=== PATIENT | female | born 1950 | race Caucasian/White ===

== ENCOUNTER 2018-08-07 03:06 | Emergency (ER) | payer BC, SELFPAY ==
[2018-08-07 03:07] VITALS: BP 196/67; PULSE 82; RESP 16; TEMP 36.8; O2SAT 98
[2018-08-07 03:13] VITALS: RESP 16
--- NOTE | 2018-08-07 03:31 | ED.GENADUL_ITS ---
Discharge Plan Disposition Patient Disposition: HOME Condition: Stable Discharge Details Chief Complaint: Dizzy/Sync Clinical Impression: Peripheral vertigo ED Provider: Chan Raman Home Meds and New Rx's Prescriptions: New meclizine 25 mg tablet 25 mg PO TID PRN (Reason: dizziness) Qty: 14 RF: 0 meclizine 25 mg tablet 25 mg PO BID-TID PRN (Reason: dizziness) Qty: 14 RF: 0 Continued phenytoin sodium extended [Dilantin Extended] 100 mg Capsule 400 mg PO DAILY RF: 0 phenobarbital 64.8 mg Tablet 64.8 mg PO BID RF: 0 Discharge Instructions Instructions: Vertigo (ED) Additional Instructions: Home to rest today. Please sleep with head of the bed elevated 2-3 pillows. I have referred you to physical therapy as they can help with treatment of your vertigo. May use the prescribed meclizine, as needed for persistent vertigo Stand Alone Forms: Physical Therapy Referral Medical Decision Making 68-year-old female with a history of previous episodes of vertigo. She presents with vertiginous symptoms that began when rolling and turning her head in bed tonight. She did not fall. She has not had any other recent illness. She arrives with mild hypertension but otherwise normal vital signs. She has an intact neurologic exam. She does not appear clinically to have Dilantin toxicity. Patient given meclizine and referred for screening CT scan of the head. There are no acute findings. Patient has left frontotemporal encephalomalacia. Improving with meclizine. Will offer her prescription of same to be used as needed at home. HPI General Mode of arrival: EMS . Date/Time Provider Initiated Documentation: 08/07/18 03:08 . Limitations to Documentation: no limitations . Information obtained by: patient and EMS . History of Present Illness 68 year old F presents to the emergency department with the chief complaint of Vertigo. Once 3 days ago and recurrent again tonight., described as moderate and similar to prior episodes, and is localized to the head. Patient reports no radiation. Patient started experiencing this hour(s) and it has been constant. Rest improves symptom(s), Movement worsens symptoms . Patient notes no other symptoms.. Patient did receive the following treatments prior to arrival, none Related Data Home Medications Medication Instructions Recorded Confirmed meclizine 25 mg PO BID-TID PRN #14 tab 08/07/18 meclizine 25 mg PO TID PRN #14 tab 08/07/18 phenobarbital 64.8 mg PO BID 08/07/18 08/07/18 phenytoin sodium extended 400 mg PO DAILY 08/07/18 08/07/18 [Dilantin Extended] Previous Rx's Medication Instructions Recorded meclizine 25 mg PO BID-TID PRN #14 tab 08/07/18 meclizine 25 mg PO TID PRN #14 tab 08/07/18 Allergies Allergy/AdvReac Type Severity Reaction Status Date / Time triamcinolone AdvReac Mild Other (See Unverified 08/07/18 03:18 Comment) General Stated Complaint: Dizzy/Sync SAKINA: 3 Review of Systems Review of Systems No fall or injury. No recent illness. She is had mild right ear discomfort. Similar episodes of vertigo in the past. 8 systems reviewed and otherwise negative [facility] Social History Smoking/Tobacco Use Status: Current every day Tobacco Type: cigarettes Alcohol Intake: never Drug use: Never Do you feel safe at home: Yes Exam Narrative Exam Narrative: GEN: awake, alert, oriented 3. Pleasant, well groomed, interactive. HEAD: Normocephalic, atraumatic ENT: Mucous membranes moist, oropharynx unremarkable, tympanic membranes [place] and pearlescent bilaterally, external ear exam unremarkable EYES: PERRL, EOMI NECK: Full ROM, no DONG, no menigismus CHEST/RESP: Nontender, clear to auscultation bilateral, no wheeze/rhonchi/rales CARDIOVASCULAR: RRR, no murmur, rub love. 2+ Rad pulse bilateral ABDOMEN: Soft, nontender, no mass. +Bowel sounds EXT: Full ROM, no edema, no rash Neuro: Grossly normal neurologic exam, conversant, interactive. Psych: Speech fluent, thoughts congruent, affect normal Course Vital Signs Temperature 36.8 C 08/07/18 03:07 Pulse 82 08/07/18 03:07 Respiratory Rate 16 08/07/18 03:07 Blood Pressure 196/67 H 08/07/18 03:07 Pulse Oximetry 98 08/07/18 03:07 Temperature 36.8 C 08/07/18 03:07 Temperature Source Temporal Artery Scan 08/07/18 03:07 Pulse 82 08/07/18 03:07 Respiratory Rate 16 08/07/18 03:13 Respiratory Effort 08/07/18 03:13 Respiratory Depth Normal 08/07/18 03:13 Respiratory Pattern Normal 08/07/18 03:13 Blood Pressure 196/67 H 08/07/18 03:07 Pulse Oximetry 98 08/07/18 03:07 Oxygen Delivery Method Room Air 08/07/18 03:07 Oxygen Flow Rate 0 08/07/18 03:07 Pain Level 0 08/07/18 03:07
[2018-08-07] MEDS: Meclizine 25 MG TAB PO ×2 (03:36→05:09)
--- NOTE | 2018-08-07 04:10 | DI.CT_ITS ---
SYMPTOMS/DIAGNOSIS: VERTIGO, RIGHT EAR PAIN NONCONTRAST HEAD CT: There is a large old area of encephalomalacia seen in the left temporal and frontoparietal regions. No acute hemorrhage, mass or acute infarct is seen. The orbits, sinuses and mastoid air cells are unremarkable. IMPRESSION: Old left frontotemporal encephalomalacia. No acute abnormality.
--- NOTE | 2018-08-07 04:14 | DI.VRAD_ITS ---
EXAM: CT Head Without Contrast EXAM DATE/TIME: 08/07/2018 3:29 AM CLINICAL HISTORY: 68 years old, female; Signs and symptoms; Dizziness; Patient HX: HX of a skull FX at age 13 R frontal, HX of seizures; Additional info: Dizziness, vertigo, R ear pain TECHNIQUE: Imaging protocol: Axial computed tomography images of the head without contrast. Coronal and sagittal reformatted images were created and reviewed. Radiation optimization: All CT scans at this facility use at least one of these dose optimization techniques: automated exposure control; mA and/or kV adjustment per patient size (includes targeted exams where dose is matched to clinical indication); or iterative reconstruction. COMPARISON: No relevant prior studies available. FINDINGS: Brain: Left frontotemporal encephalomalacia noted No hemorrhage. Unremarkable white matter. No mass effect. Question mildly low-lying cerebellar tonsils Ventricles: Normal. No ventriculomegaly. Bones/joints: Unremarkable. No acute fracture. Sinuses: Visualized sinuses are unremarkable. No fluid levels. Mastoid air cells: Minimal fluid bilaterally Soft tissues: Unremarkable. IMPRESSION: No acute intracranial abnormality. Findings in keeping with remote left-sided frontotemporal trauma/hemorrhage. Question mildly low-lying cerebellar tonsils which may be positional. Correlate for occipital headaches Minimal mastoid fluid Dictated and Authenticated by: Gino Treviño MD. Ordering:RAYMUNDO Giles MD
[2018-08-07 04:58] VITALS: BP 165/84; PULSE 70; RESP 18; O2SAT 98
== END 2018-08-07 05:12 | disposition home or self-care (01) ==
LOC: ER 05:16
PROVIDERS: Emergency Provider Emergency Medicine; PCP Family Medicine
DX: H81.393 Other peripheral vertigo, bilateral (principal); G93.89 Other specified disorders of brain; I10 Essential (primary) hypertension
CPT/HCPCS: 99284; 70450

== ENCOUNTER 2018-08-23 11:38 | Outpatient (REF) | payer BC, SELFPAY ==
[2018-08-23 22:39] LABS: Anion Gap 9.5 mmol/L (3-11); BUN 17 mg/dL (7-18); CO2 27.5 mmol/L (21.0-32.0); CREATININE 0.84 mg/dL (0.55-1.02); Calcium 8.6 mg/dL (8.5-10.1); Chloride 101 mmol/L (98-107); Glucose 90 mg/dL (70-100); PHENOBARBITAL 16.2 ug/mL (15.0-40.0); Potassium 4.4 mmol/L (3.5-5.1); Sodium 138 mmol/L (136-145)
[2018-08-24 17:42] LABS: Phenytoin (UVM) 9.8 ug/ml (10.0-20.0)
== END 2018-08-23 11:58 ==
LOC: NCHCN 11:38
PROVIDERS: PCP Family Medicine; Visit Provider Specialist/Technologist Athletic Trainer
DX: R56.9 Unspecified convulsions (principal); Z51.81 Encounter for therapeutic drug level monitoring; Z79.899 Other long term (current) drug therapy
CPT/HCPCS: 80048; 80185; 80184

== ENCOUNTER 2019-09-03 12:37 | Emergency (ER) | payer BC, SELFPAY ==
[2019-09-03] VITALS (13 sets, daily range): BP systolic 129–159; BP diastolic 73–87; PULSE 89–99; RESP 15–32; TEMP 37; O2SAT 94–97
--- NOTE | 2019-09-03 12:30 | DI.RAD_ITS ---
EXAM: XR PORTABLE CHEST AP CLINICAL HISTORY: chest pain, SOB TECHNIQUE: 2D digital imaging was performed. COMPARISON: No exams were available for comparison FINDINGS: LUNGS: Clear. No pleural abnormality seen. HEART: Normal. MEDIASTINUM: Normal. Multiple leads overlie the chest. The right upper lobe is partially obscured. IMPRESSION: No acute pulmonary findings. DATA REPOSITORY: RADIATION DOSE DELIVERED:
--- NOTE | 2019-09-03 12:30 | DI.CT_ITS ---
EXAM: CT THORAX AND ABD/PEL CTA INDICATION: BACK PAIN, ? AORTIC DISSECTION COMPARISON: There are no prior comparison exams. TECHNIQUE: CT angiography of the chest, abdomen and pelvis was performed. FINDINGS: Chest: There is no evidence of aortic dissection. There are atherosclerotic changes of the thoracic and abd ominal aorta with some mural irregularity and calcification. There is a focal aneurysm of the descend ing thoracic aorta at the T8-9 level. It measures roughly 1.3 x 1 cm. There is no evidence of dissect ion or extravasation of contrast. The branch vessels in the chest and abdomen appear patent. There is no pleural or pericardial effusion. The left atrium and left ventricle are mildly dilated. There are mild coronary artery calcifications. The pulmonary arteries are well opacified with IV contrast and no emboli are seen. There is an aneurysm seen in the distal abdominal aorta, which has a fusiform marck earance. There is mural thrombus eccentric toward the left. There is no evidence of rupture. It measu res 6.2 cm in length x 3.7 cm transverse x 3.5 cm AP. There is a nodule at the lower pole of the right lobe of the thyroid measuring 3.8 cm. Lungs: There are underlying emphysematous changes as well as fibrotic changes. There is a spiculated- appearing mass directly adjacent to the right hilum at the major fissure measuring 1 cm in diameter. An additional mass is seen posteriorly in the right lower lobe measuring 4 millimeters. A tiny nodule is seen at the left upper lobe. There is a 1.2 centimeter area of atelectasis versus scarring or ma ss measuring 1.6 cm anteriorly in the left upper lobe. There are additional smaller masses seen anter iorly in the left upper lobe. There is an 8 millimeter nodule seen more superiorly along the left sony or fissure. Breasts: There is roughly a 4.5 centimeter invasive-appearing mass seen at the right inframammary fol d, which appears to invade the inferior portion of the pectoralis major muscle. There is also invasio n into the skin. There is asymmetry in breast size and the right nipple is not seen, which could be s econdary to previous surgery. Lymph nodes: There are small bilateral axillary lymph nodes, not definitely pathologically enlarged. There is a right paratracheal node measuring 1.5 cm and a superior right hilar lymph node measuring 1 .8 cm. Bones: There are bony lesions in the T5 and T7 vertebral bodies having the appearance of hemangiomas. No definite suspicious bony abnormalities are seen. Abdomen and pelvis: The exam is somewhat limited by patient motion. Patient is status post cholecystectomy. No liver le sions are visible. The surgical clips create artifact through the liver. There are multiple bilateral renal cysts. There is enlargement of the left adrenal gland without definite focal mass. The right a drenal gland appears normal. There is a small diverticulum of the descending duodenum. The pancreas i s mildly atrophic. The spleen is normal in size. The bladder is unremarkable. The uterus and ovaries are unremarkable. The bowel is not well evaluated due to motion. There is no evidence of obstruction. There are no signs of wall thickening. There is a moderate quantity of stool. There is a 2.6 centimeter spiculated lesion in the subcutaneous fat beneath the level of the lower le ft ribs, in the left flank region. IMPRESSION: 1. Focal 1.3 centimeter aneurysm of the posterior descending thoracic aorta. 3.7 centimeter aneury sm of the distal abdominal aorta. No evidence of dissection or rupture. 2. A 4.5 centimeter invasive-appearing mass involving the lateral inferior right breast with inva samantha into the skin and pectoral muscle. Additional 2.6 centimeter spiculated lesion in the subcutane ous fat of the left flank region. 3. Multiple pulmonary nodules with a spiculated appearance, suspicious for metastatic lesions. RADIATION DOSE DELIVERED: 1,126.53mGy.cm Total DLP
[2019-09-03 13:01] LABS: Abs Immature Grans 0.01 k/cumm (0.0-0.09); Absolute Basophil Count 0.02 k/cumm (0.0-0.2); Absolute Eosinophil Count 0.07 k/cumm (0.0-0.7); Absolute Lymphocyte Count 2.11 k/cumm (1.2-3.4); Absolute Monocyte Count 0.52 k/cumm (0.11-0.7); Absolute Neutrophil Count 5.21 k/cumm (1.2-6.7); Basophils % 0.3; Eosinophils % 0.9; HCT 40.1 % (36.0-46.0); HGB 13.9 g/dL (12.0-15.5); Immature Grans % 0.1 %; Lymphocytes % 26.6; Mean Corp. HGB Concentration 34.7 g/dL (32.0-36.0); Mean Corpuscular Volume 92.4 fL (80-95); Mean Platelet Volume 10.9 fL (8.0-11.0); Monocytes % 6.5; Neutrophils % 65.6; Platelet Count 232 x1000/uL (130-400); RBC 4.34 m/cumm (4.00-5.20); RBC Distribution Width 15.2 % (11.7-14.6); White Blood Cell Count 7.94 k/cumm (4.4-10.8)
[2019-09-03] MEDS: Omnipaque 350 MG/ML 100 ML BTL IJ (13:09)
--- NOTE | 2019-09-03 13:12 | ED.GENADUL_ITS ---
Discharge Plan Discharge Details Chief Complaint: Chest Pain Primary Care Provider: Niurka Hood ED Provider: Anel Martinez Home Meds and New Rx's Prescriptions: No Action phenytoin sodium extended [Dilantin Extended] 100 mg Capsule 400 mg PO DAILY RF: 0 phenobarbital 64.8 mg Tablet 64.8 mg PO BID RF: 0 meclizine 25 mg tablet 25 mg PO BID-TID PRN (Reason: dizziness) Qty: 14 RF: 0 Discharge Data Discharge Date/Time-TO BE ENTERED AT DEPARTURE: 09/03/19 13:58 Medical Decision Making Lucero Caldera is a 69 y/o woman with a h/o seizures who presented to the emergency department with one week of b/l shoulder pain, now with chest pain and back pain today. On exam neurologically non-focal, benign cardiopulmonary exam, Pt appears intermittently uncomfortable. EKG in the field showed STEMI. Pt received full dose ASA and NGx1 in the field. Concern for STEMI vs aortic dissection vs other. Exam/hx not c/w AAA rupture, CVA, sepsis. Plan for EKG, CXR, CTA, NG. EKG shows STEMI. Discussed case with cardiology at [facility] directly after EKG resulted. Dr. Silverman of cardiology requested 300mg plavix and 50 mg TNK after aortic dissection ruled out. Accepting physician is Dr. Spence. ESTHER en route. Pt with pain improved with SLNG. Plan for gtt. Pt to CTA emergently. CTA read by me in diagnostic imaging dept, shows abnormality of descending aorta below arch, holding lytics for now, attempting to contact radiology for read. 13:22 discussed CTA with radiology over the phone: Small focal aneurysm noted at T9-10 level, also chronic AAA. 1324: Contacted [facility] re: CT results, images pushed, awaiting recommendations re: lytics. 1338 Dr. Silverman called, reported that he spoke with Dr. Hoover of radiology and reviewed the CT images and report to [facility], he requests full dose tenecteplase, plavix be given to the patient at this time. TNK and plavix given. Pt remains comfortable on NG gtt. [facility]ART arrived, Pt left ED with medics for transfer without further issue. Clinical Impression: STEMI Disposition: [facility] Medical Records Medical records reviewed: Yes I reviewed the patient's medical records. Imaging Data Radiologic Study: Attestation: I personally reviewed and interpreted this imaging study as follows: Radiologist's impression: EXAM: XR PORTABLE CHEST AP CLINICAL HISTORY: chest pain, SOB TECHNIQUE: 2D digital imaging was performed. COMPARISON: No exams were available for comparison FINDINGS: LUNGS: Clear. No pleural abnormality seen. HEART: Normal. MEDIASTINUM: Normal. Multiple leads overlie the chest. The right upper lobe is partially obscured. IMPRESSION: No acute pulmonary findings. Lab Data Lab results reviewed: Yes I reviewed the patient's lab results. Labs: Laboratory Tests Range/Units 09/03/19 09/03/19 09/03/19 12:50 12:50 12:50 WBC (4.4-10.8) k/cumm 7.94 RBC (4.00-5.20) m/cumm 4.34 Hgb (12.0-15.5) g/dL 13.9 Hct (36.0-46.0) % 40.1 MCV (80-95) fL 92.4 MCH (27.0-33.0) pg 32.0 MCHC (32.0-36.0) g/dL 34.7 RDW (11.7-14.6) % 15.2 H Plt Count (130-400) x1000/uL 232 MPV (8.0-11.0) fL 10.9 Immature Gran % % 0.1 Neutrophils % 65.6 Lymphocytes % 26.6 Monocytes % 6.5 Eosinophils % 0.9 Basophils % 0.3 Absolute Neutrophils (1.2-6.7) k/cumm 5.21 Absolute Lymphocytes (1.2-3.4) k/cumm 2.11 Absolute Monocytes (0.11-0.7) k/cumm 0.52 Absolute Eosinophils (0.0-0.7) k/cumm 0.07 Absolute Basophils (0.0-0.2) k/cumm 0.02 PT (9.3-11.0) sec 9.7 INR (0.9-1.1) 1.0 Sodium Cancelled Potassium Cancelled Chloride Cancelled Carbon Dioxide Cancelled Anion Gap Cancelled BUN Cancelled Creatinine Cancelled Estimated GFR/1.73 m2 Cancelled Glucose Cancelled Calcium Cancelled Total Bilirubin Cancelled AST Cancelled ALT Cancelled Alkaline Phosphatase Cancelled Troponin I Cancelled Total Protein Cancelled Albumin Cancelled Range/Units 09/03/19 09/03/19 13:22 15:32 WBC (4.4-10.8) k/cumm RBC (4.00-5.20) m/cumm Hgb (12.0-15.5) g/dL Hct (36.0-46.0) % MCV (80-95) fL MCH (27.0-33.0) pg MCHC (32.0-36.0) g/dL RDW (11.7-14.6) % Plt Count (130-400) x1000/uL MPV (8.0-11.0) fL Immature Gran % % Neutrophils % Lymphocytes % Monocytes % Eosinophils % Basophils % Absolute Neutrophils (1.2-6.7) k/cumm Absolute Lymphocytes (1.2-3.4) k/cumm Absolute Monocytes (0.11-0.7) k/cumm Absolute Eosinophils (0.0-0.7) k/cumm Absolute Basophils (0.0-0.2) k/cumm PT (9.3-11.0) sec INR (0.9-1.1) Sodium 136 Potassium 4.0 Chloride 103 Carbon Dioxide 21.1 Anion Gap 11.9 H BUN 23 H Creatinine 1.03 H Estimated GFR/1.73 m2 52.98 Glucose 109 H Calcium 8.5 Total Bilirubin 0.3 AST 39 H ALT 35 Alkaline Phosphatase 207 H Troponin I 2.89 H* Cancelled Total Protein 6.9 Albumin 3.1 L ECG Data Attestation: I personally reviewed and interpreted this ECG (s) as follows: Interpretation: EKG shows sinus rhythm at 91, normal axis, ST elevation in lead I lead aVL lead V1 lead V2, ST depression inferiorly, STEMI HPI General Mode of arrival: EMS . Date/Time Provider Initiated Documentation: 09/03/19 12:38 . Limitations to Documentation: no limitations . Information obtained by: patient, RN notes reviewed and old records reviewed . HPI Narrative: Lucero Caldera is a 69 y/o woman with h/o seizures presenting to the emergency department presenting to the emergency department with b/l shoulder, back, and chest pain. Pt reports that for the past week she has been having pain in her bilateral posterior shoulders, occurring with rest but also somewhat worse with exertion. Pt states that today pain became much more severein both shouders, and she also developed pain in her central upper back and central chest. Pt reports that shoulder pain is aching, back and chest pain is sharp. Pt reports that she has been burping more frequently over the last week as well. She reports that pain is waxing and waning, sometimes worse with exertion, not pleuritic. She denies other pain, SOB, cough, fever, vomiting, diarrhea, numbness, weakness. Has been eating and drinking as usual. Never with similar pain in the past. Related Data Home Medications Medication Instructions Recorded Confirmed meclizine 25 mg PO BID-TID PRN #14 tab 08/07/18 phenobarbital 64.8 mg PO BID 08/07/18 08/07/18 phenytoin sodium extended 400 mg PO DAILY 08/07/18 08/07/18 [Dilantin Extended] Previous Rx's Medication Instructions Recorded meclizine 25 mg PO BID-TID PRN #14 tab 08/07/18 Allergies Allergy/AdvReac Type Severity Reaction Status Date / Time triamcinolone AdvReac Mild Other (See Unverified 09/03/19 13:24 Comment) General Stated Complaint: Chest Pain SAKINA: 2 Review of Systems Narrative: Constitutional: denies fevers Eyes: denies eye pain ENT: denies ear pain, dental pain, sore throat Cardiovascular: denies edema, reports chest pain Respiratory: denies SOB, cough GI: denies abdominal pain, vomiting, diarrhea : denies flank pain MSK: denies neck pain, reports b/l shoulder pain, upper back pain Skin: denies rash Neuro: denies headaches, numbness, weakness [facility] Social History Smoking/Tobacco Use Status: Current every day Tobacco Type: cigarettes Alcohol Intake: never Drug use: Never Substance use type: does not use Do you feel safe at home: Yes Do you feel safe in your relationship?: Yes Exam Narrative Exam Narrative: Constitutional: well and [id number], pleasant but appears intermittently uncomfortable, otherwise conversing normally HENT: head atraumatic/normocephalic/normal inspection, mucous membranes moist Eyes: conjunctiva normal, sclera normal, pupils 3mm b/l Neck: no stridor, normal ROM, trachea midline Chest: normal inspection, no TTP Resp: normal work of breathing, LCTAB Cardio: normal rate, normal rhythm, no murmur appreciated GI: abdomen soft, non-tender, non-distended Back: normal inspection, no rash, no TTP Skin: warm, dry, normal color, no rash Neuro: alert, not altered, grossly non-focal, normal tone Ext: no edema, no TTP of the shoulders or upper back, FROM b/l shoulders without pain, radial pulses intact and symmetric Psych: normal mood, normal affect, normal behavior Course Vital Signs Vital signs: Vital Signs Respiratory Rate 32 H 09/03/19 12:46 Temperature 37.0 C 09/03/19 12:49 Temperature Source Temporal Artery Scan 09/03/19 12:49 Pulse 95 H 09/03/19 12:49 Pulse 94 H 09/03/19 12:50 Respiratory Rate 18 09/03/19 12:50 Blood Pressure 159/73 H 09/03/19 12:49 Blood Pressure Mean 93 09/03/19 12:47 Blood Pressure Position Sitting 09/03/19 12:49 Pulse Oximetry 95 09/03/19 12:50 Oxygen Delivery Method Room Air 09/03/19 12:49 Oxygen Flow Rate 0 09/03/19 12:49 Pain Level 3 09/03/19 12:49 Lab/Test Results Lab/Test Results: Laboratory Tests Range/Units 09/03/19 12:50 WBC (4.4-10.8) k/cumm 7.94 RBC (4.00-5.20) m/cumm 4.34 Hgb (12.0-15.5) g/dL 13.9 Hct (36.0-46.0) % 40.1 MCV (80-95) fL 92.4 MCH (27.0-33.0) pg 32.0 MCHC (32.0-36.0) g/dL 34.7 RDW (11.7-14.6) % 15.2 H Plt Count (130-400) x1000/uL 232 MPV (8.0-11.0) fL 10.9 Immature Gran % % 0.1 Neutrophils % 65.6 Lymphocytes % 26.6 Monocytes % 6.5 Eosinophils % 0.9 Basophils % 0.3 Absolute Neutrophils (1.2-6.7) k/cumm 5.21 Absolute Lymphocytes (1.2-3.4) k/cumm 2.11 Absolute Monocytes (0.11-0.7) k/cumm 0.52 Absolute Eosinophils (0.0-0.7) k/cumm 0.07 Absolute Basophils (0.0-0.2) k/cumm 0.02 Critical Care Time Critical Care Time Critical Care Time: Yes Total Critical Care Time: 45 Attestation: I have spent greater than 45 min of critical care time with this critically ill patient, including frequent bedside reassessments, discussions with consultants, and management of gtts.
[2019-09-03 13:27] LABS: Prothrombin Time 9.7 sec (9.3-11.0)
[2019-09-03] MEDS: Clopidogrel 300 MG TAB PO (13:33)
[2019-09-03] MEDS: Tenecteplase 50 MG KIT IVP (13:41)
[2019-09-03] MEDS: Normal Saline Flush 10 ML SYR IVP (13:47)
[2019-09-03 13:55] LABS: ALT 35 U/L (14-59); AST 39 U/L (15-37); Albumin 3.1 g/dL (3.4-5.0); Alkaline Phosphatase 207 U/L (46-116); Anion Gap 11.9 mmol/L (3-11); BUN 23 mg/dL (7-18); Bilirubin, Total 0.3 mg/dL (0.2-1.0); CO2 21.1 mmol/L (21.0-32.0); CREATININE 1.03 mg/dL (0.55-1.02); Calcium 8.5 mg/dL (8.5-10.1); Chloride 103 mmol/L (98-107); Estimated GFR 52.98 (mL/min/1.73m2); Glucose 109 mg/dL (74-106); Sodium 136 mmol/L (136-145); Total Protein 6.9 g/dL (6.4-8.2)
[2019-09-03 13:56] LABS: Troponin I 2.89 ng/mL (<0.06)
== END 2019-09-03 13:58 ==
PROVIDERS: Emergency Provider Student in an Organized Health Care Education/Training Program; PCP Family Medicine
DX: I21.3 ST elevation (STEMI) myocardial infarction of unspecified site (principal); M54.6 Pain in thoracic spine; R14.2 Eructation; F17.210 Nicotine dependence, cigarettes, uncomplicated
CPT/HCPCS: 36415; 74177; 80053; 93005; 96365; 96375; 99291; 71045; 84484; 85025; 85610; 93010; J3101; J3490

== ENCOUNTER 2019-09-20 16:26 | Outpatient (RCR) | payer BC, SELFPAY | END 2019-10-19 23:59 | disposition home or self-care (01) | LOC: CR 16:26 | PROVIDERS: PCP Family Medicine; Visit Provider Family Medicine | DX: R69 Illness, unspecified (principal) ==

== ENCOUNTER 2019-10-01 07:22 | Outpatient (CLI) | payer BC, SELFPAY ==
--- NOTE | 2019-10-01 15:14 | NS.NUTBLAN_ITS ---
Hilary is 69 years old and is referred to typewriter mechanic for Medical Nutrition Therapy for obesity and CAD, recently had stent put in at [facility]. BMI 39 indicates class 2 obesity, does not want to be weighed today. Here today with her of 50 years. Dx include CAD, single vessel, HTN, Seizure disorder, hyperlipidemia. She smokes 1 pack per day. Meds include dilantin, phenobarbital, lisinopril, atorvastatin, plavix. Her manages her medications and does the cooking. Diet recall indicates reliance on convenience foods, low in lean protein and low in non starch vegetables. She drinks >10 cups water daily and > 4 cups coffee. No formal exercise program. Intervention: Educated Hilary and her on how to follow a low salt, low fat diet with easy to prepare foods. We also discussed importance of stopping smoking and starting exercise program such as walking 10-20 min daily. They are agreeable to both and are willing to make positive changes for their overall health. We also discussed importance of limiting extra fluid intake to 64 oz daily. Plan: Hilary will reduce fluid intake to 64 oz daily, Pat will avoid foods with > 140 mg sodium/serving and foods > 5 g saturated fat per serving, will walk 10- 20 min daily and talk to her MD about smoking cessation. No follow up visit planned.
[2019-10-03 14:52] LABS: COVID-19 RT-PCR Result NEGATIVE (Negative)
== END 2019-10-01 07:42 ==
PROVIDERS: PCP Family Medicine; Visit Provider Family Medicine
DX: Z03.818 Encounter for observation for suspected exposure to other biological agents ruled out (principal); I25.10 Atherosclerotic heart disease of native coronary artery without angina pectoris; I10 Essential (primary) hypertension; E78.5 Hyperlipidemia, unspecified; E66.8 Other obesity; Z71.3 Dietary counseling and surveillance
CPT/HCPCS: 97802; U0003

== ENCOUNTER 2019-11-19 09:00 | Outpatient (RCR) | payer BC, SELFPAY | END 2019-11-19 23:59 | disposition home or self-care (01) | LOC: CR 09:00 | PROVIDERS: PCP Family Medicine; Visit Provider Family Medicine | DX: I25.2 Old myocardial infarction (principal); Z51.89 Encounter for other specified aftercare | CPT/HCPCS: S9472 ==

== ENCOUNTER 2019-12-19 13:15 | Outpatient (RCR) | payer BC, SELFPAY | END 2019-12-19 23:59 | disposition home or self-care (01) | LOC: CR 13:15 | PROVIDERS: PCP Family Medicine; Visit Provider Family Medicine | DX: I25.2 Old myocardial infarction (principal); Z51.89 Encounter for other specified aftercare | CPT/HCPCS: S9472 ==

== ENCOUNTER 2019-12-28 09:00 | Outpatient (RCR) | payer BC, SELFPAY | END 2020-01-19 23:59 | disposition home or self-care (01) | LOC: CR 09:00 | PROVIDERS: PCP Family Medicine; Visit Provider Family Medicine | DX: I25.2 Old myocardial infarction (principal); Z51.89 Encounter for other specified aftercare | CPT/HCPCS: S9472 ==

== ENCOUNTER 2020-06-08 19:28 | Observation (INO) | payer BC, SELFPAY ==
[2020-06-08 19:30] VITALS: BP 150/72; PULSE 99; RESP 20; TEMP 36.7; O2SAT 97
--- NOTE | 2020-06-08 19:45 | DI.CT_ITS ---
EXAM: CT CHEST W CLINICAL HISTORY: Bleeding right breast mass. TECHNIQUE: Multi planar reconstructions were performed. CONTRAST MATERIAL: Omnipaque 350; 70 cc COMPARISON: CT CT THORAX ABD/PEL CTA from 09/03/2019 FINDINGS: CHEST: SOFT TISSUES: The previously described right breast mass is again noted, suspicious for malignancy, a ppearing necrotic and with contiguous involvement of the subjacent chest wall now evident but without rib destruction. There is overlying skin thickening which may be related to interval radiation symone tment. Few slightly prominent lymph nodes in the right axilla are noted. In addition, there is a it is a nodular density measuring 9 x 7 millimeters in the medial aspect of the opposite-left breast as well as another noncalcified 8 millimeter nodule more centrally located in the left breast, these fi ndings not previously evident. LUNGS: There is now a moderate size right pleural effusion, not previously present. Also smaller lef t pleural effusion. There are multiple small metastatic appearing nodules in both lung naqvi now ev ident. Average size is 6 millimeters. No focal findings in the trachea and mainstem bronchi. MEDIASTINUM: No obvious hilar nor mediastinal adenopathy. Large nodule in the right thyroid lobe is again noted.. There is no supraclavicular adenopathy. Visualized thyroid unremarkable. CARDIAC: Mild cardiomegaly. No pericardial effusion.Caliber of the thoracic aorta is within normal l imits. VISUALIZED UPPER ABDOMEN:Right adrenal gland unremarkable. The previously described mass in the left adrenal gland is unchanged. Multiple cysts in the visualized kidneys are again noted. The gallblad joao is surgically absent. There is a fusiform infrarenal abdominal aortic aneurysm noted which is on ly partially included in the field of view but measures approximately 3.5 cm. In addition, there is a subcutaneous noncalcified nodule over the anterior Tricia right abdominal wall measuring 15 mm are 1. 5 x 1.1 cm. This appears unchanged from 09/03/2019 OSSEOUS: There is a cyst nonexpansile sclerotic bone lesion in the posterior left side of the T12 ligia tebral body, most probably metastatic. This was not evident on the prior study. Another sclerotic m etastatic lesion is evident on the right side of L2 vertebral body and also lesions in partially incl uded L3 vertebra. IMPRESSION: 1. Compared to the prior CT scan of August 2019 there has been significant deterioration. Previously d escribed large right breast mass appears presently necrotic and invading the underlying chest wall. Additional breast nodules as above. 2. There are multiple metastatic nodules now evident in both lung naqvi and there are bilateral pleu ral effusions, right larger than left. 3. Large nodule in the right thyroid lobe again noted. 4. Sclerotic metastatic disease now evident in vertebral bodies, not previously present. No obvious rib lesions. 5. Left adrenal mass again noted which appears unchanged in size. Cannot rule out a malignant metas tatic lesion. The opposite-right adrenal gland remains unremarkable. 6. Gallbladder surgically absent. Biliary tree is not dilated. There are bilateral benign kidney c ysts. RADIATION DOSE DELIVERED: 1,621.08mGy.cm Total DLP DATA REPOSITORY: All CT scans at this facility are submitted to the National Radiology Data Registry (NRDR) Dose Index Registry (DIR) with the [employer] ([employer]). RADIATION OPTIMIZATION: All CT scans at this facility use at least one of these dose optimization te chniques: automated exposure control; mA and/or kV adjustment per patient size (includes targeted exa ms where dose is matched to clinical indication); or iterative reconstruction.
--- NOTE | 2020-06-08 19:53 | ED.GENADUL_ITS ---
Discharge Plan Disposition Patient Disposition: [facility] INPATIENT Condition: Serious Discharge Details Chief Complaint: Cellulitis Clinical Impression: Breast lesion Primary Care Provider: Niurka Hood ED Provider: Kamar Mace Home Meds and New Rx's Prescriptions: No Action lisinopril 5 mg tablet 5 mg PO DAILY RF: 0 nitroglycerin 0.4 mg tablet, sublingual 0.4 mg SL Q5M PRNRF: 0 clopidogrel [Plavix] 75 mg tablet 75 mg PO DAILY RF: 0 atorvastatin 80 mg tablet 80 mg PO DAILY RF: 0 aspirin [Aspir-81] 81 mg tablet,delayed release (DR/EC) 81 mg PO DAILY RF: 0 metoprolol succinate 50 mg tablet extended release 24 hr 25 mg PO DAILY RF: 0 phenytoin sodium extended [Dilantin Extended] 100 mg Capsule 400 mg PO DAILY RF: 0 phenobarbital 64.8 mg Tablet 64.8 mg PO BID RF: 0 Medical Decision Making This is a 70-year-old female who presents from home via EMS for evaluation of a bleeding wound. She has a past medical history of current smoking, hyperlipidemia, hypertension, AK, seizure disorder, dizziness. On examination she is anxious, disheveled, and I am concerned for what appears to be right breast cancer. Patient initially would not allow any work-up and simply wants the wound to be addressed. I explained to her in length my concern, she is willing to allow IV, blood work; however, initially refusing CT imaging. Upon further discussion she is allowing the CT. She would like her to come back. I explained to her our visitor policy. I offered to call her but she does not want me to speak with him. Patient is requesting that someone stay in the room with her as she does not like to be alone. Laboratory values reveal a white blood cell count of 8.16 hemoglobin 13 hematocrit 39.2 platelet count 229. INR 1.0, electrolytes unremarkable. Creatinine 1.0 with a GFR 54.66. Glucose 131. Patient once again refusing CT. I explained to her that I am highly concerned regarding her physical findings and now the fact that this mass is bleeding. If she was to leave I would request that she leaves AMA. She is once again agreeable to CT CT read by radiology as necrotic right breast mass, likely a primary malignancy, with evidence of metastasis to diffuse body wall, bilateral lungs, pleural space, spine, and possibly the left adrenal gland and posterior right lobe of the liver. Heterogeneous enlarged right thyroid, concerning for neoplasm, recommend thyroid ultrasound. Discussed CT findings with patient. Patient states that she knew about her abnormal breast for several years and was aware of the CT findings in August 2019. Patient tells me that she would like to go home. We initially tried to place gauze and Surgicel to the oozing wound without control of the bleeding. Patient states that she is increasing in her anxiety, would like to go home. I have explained to her that I believe that admission would be beneficial, we can continue to watch her wound, and get her set up with home resources, oncology, and a further evaluation here at the hospital. Patient continues to refuse. Given the lesion appears friable I am hesitant to place any sutures. We placed 2 pieces of Gelfoam, multiple 4 x 4's, and then an abdominal binder which seemed to obtain hemostasis. Patient is requesting that I now contact her and make them aware of what is going on. Patient reports that she was feeling dizzy like the room is spinning, she states that she gets this often, and she would like the medication that she received during one of her previous ER visits. I reviewed her records, it seems as though meclizine helps, 25 p.o. meclizine ordered. I spoke with the patient's , Lazaro. I made him aware of the work-up here in the ER and the CT findings. I have made him aware that his wishes to be discharged home. He states that he was unaware of her breast abnormalities or likely cancer. He seems quite surprised. He is comfortable taking her home if that is what she wishes. Patient was going to be discharged, but before getting into the wheelchair she is now crying stating that she is willing to stay in the hospital. She states that she does not feel well enough to go home. I will discuss the case with our hospitalist team for admission. Case discussed with Dr. Ramirez. Medical Records Medical records reviewed: Yes I reviewed the patient's medical records. Lab Data Lab results reviewed: Yes I reviewed the patient's lab results. Lab results narrative: Laboratory Tests Range/Units 06/08/20 06/08/20 06/08/20 20:00 20:00 20:00 WBC (4.4-10.8) 10^3/uL 8.16 RBC (3.93-5.22) 10^6/uL 4.26 Hgb (11.2-15.7) g/dL 13.0 Hct (36.0-46.0) % 39.2 MCV (80-95) fL 92.0 MCH (27.0-33.0) pg 30.5 MCHC (32.0-36.0) % 33.2 RDW (11.7-14.6) % 16.4 H Plt Count (130-400) 10^3/uL 229 MPV (8.0-11.0) fL 10.5 Immature Gran % 0.4 Neutrophils % 79.1 Lymphocytes % 10.9 Monocytes % 6.3 Eosinophils % 2.9 Basophils % 0.4 Nucleated RBC % % 0 Absolute Neutrophils (1.2-6.7) 10^3/uL 6.46 Absolute Lymphocytes (1.2-3.4) 10^3/uL 0.89 L Absolute Monocytes (0.1-0.8) 10^3/uL 0.51 Absolute Eosinophils (0.0-0.7) 10^3/uL 0.24 Absolute Basophils (0.0-0.2) 10^3/uL 0.03 PT (9.3-11.0) sec 10.0 INR (0.9-1.1) 1.0 APTT (21.0-27.5) sec 23.6 Sodium (136-145) mmol/L 139 Potassium (3.5-5.1) mmol/L 4.3 Chloride (98-107) mmol/L 103 Carbon Dioxide (21.0-32.0) mmol/L 25.3 Anion Gap (3-11) mmol/L 10.7 BUN (7-18) mg/dL 21 H Creatinine (0.55-1.02) mg/dL 1.0 Estimated GFR/1.73 m2 (mL/min/1.73m2) 54.66 Glucose (74-106) mg/dL 131 H Calcium (8.5-10.1) mg/dL 8.3 L Total Bilirubin (0.2-1.0) mg/dL 0.4 AST (15-37) U/L 18 ALT (14-59) U/L 34 Alkaline Phosphatase (46-116) U/L 199 H Total Protein (6.4-8.2) g/dL 7.4 Albumin (3.4-5.0) g/dL 3.4 Phenytoin (10.0-20.0) ug/mL Phenobarbital (15.0-40.0) ug/mL COVID-19 Source Range/Units 06/08/20 06/08/20 06/08/20 20:00 20:00 22:15 WBC (4.4-10.8) 10^3/uL RBC (3.93-5.22) 10^6/uL Hgb (11.2-15.7) g/dL Hct (36.0-46.0) % MCV (80-95) fL MCH (27.0-33.0) pg MCHC (32.0-36.0) % RDW (11.7-14.6) % Plt Count (130-400) 10^3/uL MPV (8.0-11.0) fL Immature Gran % Neutrophils % Lymphocytes % Monocytes % Eosinophils % Basophils % Nucleated RBC % % Absolute Neutrophils (1.2-6.7) 10^3/uL Absolute Lymphocytes (1.2-3.4) 10^3/uL Absolute Monocytes (0.1-0.8) 10^3/uL Absolute Eosinophils (0.0-0.7) 10^3/uL Absolute Basophils (0.0-0.2) 10^3/uL PT (9.3-11.0) sec INR (0.9-1.1) APTT (21.0-27.5) sec Sodium (136-145) mmol/L Potassium (3.5-5.1) mmol/L Chloride (98-107) mmol/L Carbon Dioxide (21.0-32.0) mmol/L Anion Gap (3-11) mmol/L BUN (7-18) mg/dL Creatinine (0.55-1.02) mg/dL Estimated GFR/1.73 m2 (mL/min/1.73m2) Glucose (74-106) mg/dL Calcium (8.5-10.1) mg/dL Total Bilirubin (0.2-1.0) mg/dL AST (15-37) U/L ALT (14-59) U/L Alkaline Phosphatase (46-116) U/L Total Protein (6.4-8.2) g/dL Albumin (3.4-5.0) g/dL Phenytoin (10.0-20.0) ug/mL 10.5 Phenobarbital (15.0-40.0) ug/mL 17.8 COVID-19 Source Nasopharyx HPI General Mode of arrival: EMS . Date/Time Provider Initiated Documentation: 06/08/20 19:34 . Limitations to Documentation: no limitations . Information obtained by: patient and EMS . HPI Narrative: This is a 70-year-old female who presents from home where she resides with her via EMS for evaluation of a wound is bleeding below her right breast. She is a rather vague and poor historian and I am able to patch her past medical history together through previous records, speaking with her and her improves who is also a rather vague and poor historian. Patient has a past medical history that includes hypertension, AK, on Plavix, dizziness, obesity, current smoker, and in one note I see a history of seizure disorder but she is unable to give me any additional information. She states that she has had an issue with her right breast for many years. I was able to review her CT from her visit on 09-03-27. At that time it revealed a 4.5 cm invasive appearing mass involving the lateral inferior right breast with invasion into the skin and pectoral muscle. Additional 2.6 cm spiculated lesion in the subcutaneous fat of the left flank region. Multiple pulmonary nodules with a spiculated appearance, suspicious for metastatic lesions. Patient states that she was aware of this but I wanted to focus on my heart first and once that is all set I was going to take care of this. Patient reports that she scratched at the breast lesion and it began bleeding today, she was unable to control the bleeding. She denies recent illness or trauma. She denies headache, fever, chest pain, abdominal pain, nausea, vomiting, numbness, tingling, weakness, change in bowel or bladder function. She reports chronic swelling in her legs. She reports intermittent shortness of breath however none right now. Related Data Home Medications Medication Instructions Recorded Confirmed phenobarbital 64.8 mg PO BID 08/07/18 06/08/20 phenytoin sodium extended 400 mg PO DAILY 08/07/18 06/08/20 [Dilantin Extended] aspirin 81 mg tablet,delayed 81 mg PO DAILY 10/02/19 06/08/20 release atorvastatin 80 mg tablet 80 mg PO DAILY 10/02/19 06/08/20 clopidogrel 75 mg tablet 75 mg PO DAILY 10/02/19 06/08/20 lisinopril 5 mg tablet 5 mg PO DAILY 10/02/19 06/08/20 nitroglycerin 0.4 mg sublingual 0.4 mg SL Q5M PRN 10/02/19 06/08/20 tablet metoprolol succinate 50 mg 25 mg PO DAILY tab 04/11/20 06/08/20 tablet,extended release 24 hr Allergies Allergy/AdvReac Type Severity Reaction Status Date / Time acetaminophen [From Tylenol] AdvReac Intermediate Dizziness/L Verified 06/08/20 19:39 ightheade tetracycline AdvReac Intermediate Dizziness/L Verified 06/08/20 19:39 ightheade triamcinolone AdvReac Mild Other (See Unverified 06/08/20 19:39 Comment) General Stated Complaint: Cellulitis SAKINA: 3 Review of Systems Constitutional Constitutional: Denies fatigue, Denies fever(s) and Denies headache(s) ENT Ears, Nose, Mouth, and Throat: Denies headache(s) and Denies neck pain Cardiovascular Cardiovascular: Denies chest pain and Reports dyspnea Respiratory Respiratory: Denies cough and Reports dyspnea Gastrointestinal Gastrointestinal: Denies abdominal pain, Denies nausea and Denies vomiting Genitourinary Genitourinary: Denies dysuria Musculoskeletal Musculoskeletal: Denies back pain and Denies neck pain Integumentary/Breasts Skin/Breast: Reports lesions Neurologic Neurologic: Denies headache(s) Endocrine Endocrine: Denies fatigue Hematologic/Lymphatic Hematologic/Lymphatic: Reports easy bleeding and Reports easy bruising [facility] Social History Smoking/Tobacco Use Status: Current every day Tobacco Type: cigarettes Smoking risk assessment performed?: Yes Alcohol Intake: never Drug use: Never Substance use type: does not use Do you feel safe at home: Yes Do you feel safe in your relationship?: Yes Exam Const General: comfortable, anxious and disheveled Orientation: alert, awake, oriented to person, oriented to place and confused (Unable to tell me the exact date) [facility] Head: normal to inspection, normocephalic and atraumatic Mouth: moist mucous membranes Eyes General: appearance normal, both eyes and all related structures Alignment and Position: alignment normal Periorbital: periorbital findings normal Eyelids: eyelids normal Conjunctivae: conjunctivae normal Sclera: sclerae normal Cornea: corneas normal Pupils: PERRL EOM: EOM intact bilaterally Direct ophthalmoscopy: normal light reflex Neck Neck: normal visual inspection, full ROM, no meningeal signs, trachea midline, supple and nontender Chest Other: There is a gross abnormality to the right inferior breast. Peau D'Phelps changes present. The inferior breast is firm. Along the inferior breast fold there is extremely friable tissue with an oozing wound, nontender, no pulsatile bleed. Mild localized dried blood but no signs of secondary infection or fluctuance. Resp Effort & Inspection: normal respiratory effort and able to speak in complete sentences Auscultation: diminished lung sounds bilaterally in the lower lung naqvi and wheezes (Regular, scattered throughout, mostly clear with cough) Cardio Rate: regular rate Rhythm: regular rhythm Back/Spine/Pelvis Back: No back tenderness Skin Lesions: lesion noted Neuro General: patient alert, patient awake, oriented Patient Orientation: Person and Place, moves all extremities and no focal motor deficits Cognition: normal cognition Speech: speech normal Sensory Exam: no sensory deficits noted Extrem General: full ROM, capillary refill normal and edema Laterality: bilateral (Lower extremities 2-3+) Psych Appearance: grossly normal Mental Status: mental status grossly normal Course Vital Signs Vital signs: Vital Signs Temperature 36.7 C 06/08/20 19:30 Pulse 99 H 06/08/20 19:30 Respiratory Rate 20 06/08/20 19:30 Blood Pressure 150/72 H 06/08/20 19:30 Pulse Oximetry 97 06/08/20 19:30 Temperature 36.7 C 06/08/20 19:30 Temperature Source Skin 06/08/20 19:30 Pulse 99 H 06/08/20 19:30 Respiratory Rate 20 06/08/20 19:30 Respiratory Effort Non-Labored 06/08/20 19:40 Blood Pressure 150/72 H 06/08/20 19:30 Blood Pressure Position Supine 06/08/20 19:30 Pulse Oximetry 97 06/08/20 19:30 Oxygen Delivery Method Room Air 06/08/20 19:30 Oxygen Flow Rate 0 06/08/20 19:30 Pain Level 4 06/08/20 19:30
[2020-06-08 20:06] LABS: Abs Immature Grans 0.03 10^3/uL (0.0-0.06); Absolute Basophil Count 0.03 10^3/uL (0.0-0.2); Absolute Eosinophil Count 0.24 10^3/uL (0.0-0.7); Absolute Lymphocyte Count 0.89 10^3/uL (1.2-3.4); Absolute Monocyte Count 0.51 10^3/uL (0.1-0.8); Absolute Neutrophil Count 6.46 10^3/uL (1.2-6.7); Basophils % 0.4; Eosinophils % 2.9; HCT 39.2 % (36.0-46.0); Immature Grans % 0.4; Lymphocytes % 10.9; MCH 30.5 pg (27.0-33.0); MCHC 33.2 % (32.0-36.0); MPV 10.5 fL (8.0-11.0); Monocytes % 6.3; Neutrophils % 79.1; Nucleated RBC 0 %; Platelet Count 229 10^3/uL (130-400); RBC 4.26 10^6/uL (3.93-5.22); RDW 16.4 % (11.7-14.6); RDW-SD 55.1 fL; WBC 8.16 10^3/uL (4.4-10.8)
[2020-06-08 20:19] LABS: ALT 34 U/L (14-59); AST 18 U/L (15-37); Albumin 3.4 g/dL (3.4-5.0); Alkaline Phosphatase 199 U/L (46-116); Anion Gap 10.7 mmol/L (3-11); BUN 21 mg/dL (7-18); Bilirubin, Total 0.4 mg/dL (0.2-1.0); CO2 25.3 mmol/L (21.0-32.0); Calcium 8.3 mg/dL (8.5-10.1); Chloride 103 mmol/L (98-107); Estimated GFR 54.66 (mL/min/1.73m2); Glucose 131 mg/dL (74-106); Potassium 4.3 mmol/L (3.5-5.1); Sodium 139 mmol/L (136-145); Total Protein 7.4 g/dL (6.4-8.2)
[2020-06-08 20:28] LABS: PTT Activated 23.6 sec (21.0-27.5)
[2020-06-08] MEDS: Normal Saline - Diluent 50 ML VIAL IV (21:12)
[2020-06-08] MEDS: Normal Saline Flush 10 ML SYR IVP (21:12)
[2020-06-08] MEDS: Cellulose,Oxidized 2X3 PKT 1 EACH MC (21:20)
--- NOTE | 2020-06-08 21:26 | DI.VRAD_ITS ---
PROCEDURE INFORMATION: Exam: CT Chest With Contrast; Diagnostic Exam date and time: 06/08/2020 8:49 PM Age: 70 years old Clinical indication: Other: Bleeding right breast mass; Prior surgery; Surgery date: 6+ months; Surgery type: Gallbladder TECHNIQUE: Imaging protocol: Diagnostic computed tomography of the chest with contrast. 3D rendering (Not supervised by radiologist): MIP and/or 3D reconstructed images were created by the technologist. Radiation optimization: All CT scans at this facility use at least one of these dose optimization techniques: automated exposure control; mA and/or kV adjustment per patient size (includes targeted exams where dose is matched to clinical indication); or iterative reconstruction. Contrast material: OMNIPAQUE 350; Contrast volume: 70 ml; Contrast route: INTRAVENOUS (IV); COMPARISON: CT THORAX ABD/PEL CTA 09/03/2019 12:42 PM FINDINGS: Thyroid: Enlarged heterogeneous right thyroid lobe, similar to the comparison exam. Lungs: Several small, mostly peripheral pulmonary nodules in all lobes. Pleural spaces: Small right and trace left pleural effusions. Heart: Left atrial and left ventricular enlargement. No pericardial effusion. Aorta: Calcified atherosclerotic disease. Infrarenal abdominal aortic aneurysm, incompletely evaluated. Lymph nodes: Unremarkable. No enlarged lymph nodes. Liver: Ill-defined hypodensity in posterior right lobe of the liver measures 15 mm. Gallbladder and bile ducts: Prior cholecystectomy. No biliary duct dilatation. Pancreas: Pancreatic atrophy. Adrenal glands: Ill-defined left adrenal masses, not clearly benign adenomas. Kidneys and ureters: Several bilateral renal cysts. Bones/joints: Small sclerotic lesions in multiple thoracolumbar vertebral bodies. No acute fracture. Soft tissues: Cavitary right breast mass. Several subcutaneous body wall nodules on both the right and left. IMPRESSION: 1. Necrotic right breast mass, likely a primary malignancy, with evidence of metastatic disease to the subcutaneous body wall, bilateral lungs, pleural spaces, spine, and possibly the left adrenal gland in posterior right lobe of the liver. 2. Heterogeneous enlarged right thyroid, concerning for neoplasm. Recommend thyroid ultrasound. 3. Bilateral benign renal cysts. No further imaging required. Dictated and Authenticated by: Ozzie Medrano MD. Ordering:MICHEAL Galvin MD
[2020-06-08] MEDS: Meclizine 25 MG TAB PO (21:39)
[2020-06-08] MEDS: Gelatin SPONGE 12-7 MM PKT 1 EACH TP ×2 (21:47)
--- NOTE | 2020-06-08 22:00 | NUR.NOTE ---
follow up care requested by smith ayers by oncology, pcp, and home health following ed visit. Nursing Note:
--- NOTE | 2020-06-08 22:20 | NUR.NOTE ---
Addendum entered by Bushra Robison RN 06/08/20 23:14: to call her back again and review the POC with him. Patient stated yes. Kamar STOVALL spoke with the again he will pull up outside the ER. I went out to speak with him to review the POC for admission to get the dizziness and bleeding under control and then to get things arranged for care at home. appears confused and not sure what to do. He was talking on the phone to their daughter in [place] when I walked up to the car. stated when the bleeding started at home patient acted like it was no big deal at all. Original Note: Nursing Note:Patient initially refused to be admitted to get her dizziness and bleeding under control, patient very anxious, talking constantly, states she needs someone with her all the time , flails her arms frequently grabbing staff. Patient was instructed not to grab staff, patient yelling out frequently help me, help me, states she needs to burp I told her that was fine go ahead, states she can not. Continues to say help me , help me. Patient was given juventino shonna with some relief. Patient states she should not have had that CT Scan because now she is dizzy (Hx. of chronic dizziness, uses Bon[facility] at home) continues to say loudly help me , help me. Patient states she needs to void. I asked her if she wanted the bed chadwick or the commode, said the bed chadwick. Patient was very little help with rolling to get her pants off and get onto the bed chadwick. Flailing her arms and legs throwing herself back to her right side when we asked her to roll to the left and helped her to do so. My and Kamar STOVALL discussed staying in the hospital to get her issues under control and make a plan for further care at home. Patient wants to discuss this with her , now feels she better stay in the hospital tonight. The phone was dialed for her and she spoke to him. patient yelling and swearing at him stating she did not know anything about any Cancer and how could she when she never had anything done until she came here tonight. Patient looked at me and said right? I told her I do not know what [facility] I asked her to let him know she has decided to stay tonight to get things under control. Kamar STOVALL asked her if she wanted him
--- NOTE | 2020-06-08 22:32 | HPE_ITS ---
Date of service: 06/08/20 Time of Service: 22:34 Assessment and Plan Assessment and plan (1) Breast lesion: Status: Acute Assessment and plan: No doubt primary breast malignancy with mets. Will continue local care for teresa, consult Oncology in AM to review treatment options. Will treat COPD with updrafts and steroids and anxiety with prn Ativan. Patient not in condition at present to review code status due to stress and anxiety. History of Present Illness History of Present Illness Chief Complaint: bleeding from breast lesion Narrative: 70 female who reports a number of years of lesion of right breast. In August [address] demonstrated a lesion suspicious for CA, but patient did not pursue further treatment at that time. [facility] having noted some bleeding or discharge fro this same area. In ER a fungating right inframamary lesion was noted and CT shows cavitary such lesion along with presumed metastatic lesions to lungs, chest wall, spine and possibly adrenal. Dressing was placed and patient, after first stating she was going to leave, agrees to stay for further treatment. Review of Systems All systems reviewed & are unremarkable except as noted in HPI and below PFSH Social History Smoking/Tobacco Use Status: Current every day Tobacco Type: cigarettes Smoking risk assessment performed?: Yes Alcohol Intake: never Drug use: Never Substance use type: does not use Do you feel safe at home: Yes Do you feel safe in your relationship?: Yes Meds Home Medications and Allergies Allergies Allergy/AdvReac Type Severity Reaction Status Date / Time acetaminophen [From Tylenol] AdvReac Intermediate Dizziness/L Verified 06/08/20 19:39 ightheade tetracycline AdvReac Intermediate Dizziness/L Verified 06/08/20 19:39 ightheade triamcinolone AdvReac Mild Other (See Unverified 06/08/20 19:39 Comment) Home Medications Medication Instructions Recorded Confirmed Type phenobarbital 64.8 mg PO BID 08/07/18 06/08/20 History phenytoin sodium extended 400 mg PO DAILY 08/07/18 06/08/20 History [Dilantin Extended] aspirin 81 mg tablet,delayed 81 mg PO DAILY 10/02/19 06/08/20 History release atorvastatin 80 mg tablet 80 mg PO DAILY 10/02/19 06/08/20 History clopidogrel 75 mg tablet 75 mg PO DAILY 10/02/19 06/08/20 History lisinopril 5 mg tablet 5 mg PO DAILY 10/02/19 06/08/20 History nitroglycerin 0.4 mg sublingual 0.4 mg SL Q5M PRN 10/02/19 06/08/20 History tablet metoprolol succinate 50 mg 25 mg PO DAILY tab 04/11/20 06/08/20 History tablet,extended release 24 hr Exam Narrative Exam Narrative: 150/72,99, 36.7, 20. 97% RA (during visit sats drop to mid 80s, then 95 on 2L NC). HEENT atraumatic; neck supple; lungs diffuse wheeze; heart RRR; breasts normal architecture right breast distorted, nipple not identifiable, large fungating and oozing lesion inferior aspect; abdomen soft and NT; extremities chronic lymphedema LEs; neuro Ox3, anxious, moves all 4s Results Labs Result diagrams: 06/08/20 20:00 06/08/20 20:00 Labs: Laboratory Results - last 24 hr 06/08/20 06/08/20 06/08/20 20:00 20:00 20:00 WBC 8.16 RBC 4.26 Hgb 13.0 Hct 39.2 MCV 92.0 MCH 30.5 MCHC 33.2 RDW 16.4 H Plt Count 229 MPV 10.5 Immature Gran % 0.4 Neutrophils % 79.1 Lymphocytes % 10.9 Monocytes % 6.3 Eosinophils % 2.9 Basophils % 0.4 Nucleated RBC % 0 Absolute Neutrophils 6.46 Absolute Lymphocytes 0.89 L Absolute Monocytes 0.51 Absolute Eosinophils 0.24 Absolute Basophils 0.03 PT 10.0 INR 1.0 APTT 23.6 Sodium 139 Potassium 4.3 Chloride 103 Carbon Dioxide 25.3 Anion Gap 10.7 BUN 21 H Creatinine 1.0 Estimated GFR/1.73 m2 54.66 Glucose 131 H Calcium 8.3 L Total Bilirubin 0.4 AST 18 ALT 34 Alkaline Phosphatase 199 H Total Protein 7.4 Albumin 3.4 COVID-19 Source 06/08/20 22:15 WBC RBC Hgb Hct MCV MCH MCHC RDW Plt Count MPV Immature Gran % Neutrophils % Lymphocytes % Monocytes % Eosinophils % Basophils % Nucleated RBC % Absolute Neutrophils Absolute Lymphocytes Absolute Monocytes Absolute Eosinophils Absolute Basophils PT INR APTT Sodium Potassium Chloride Carbon Dioxide Anion Gap BUN Creatinine Estimated GFR/1.73 m2 Glucose Calcium Total Bilirubin AST ALT Alkaline Phosphatase Total Protein Albumin COVID-19 Source Nasopharyx Last Vital Signs Temp 36.7 C 06/08/20 19:30 Pulse 99 H 06/08/20 19:30 Resp 20 06/08/20 19:30 BP 150/72 H 06/08/20 19:30 Pulse Ox 97 06/08/20 19:30 COVID-19 Screening Have you, or household traveled for leisure in last 14 days?: No Had IN PERSON contact w/suspected or confirmed C-19 person: No
[2020-06-08 22:39] VITALS: O2SAT 88
[2020-06-08 22:42] VITALS: BP 133/48; PULSE 105; RESP 20; O2SAT 95
[2020-06-08 22:45] LABS: PHENYTOIN (DILANTIN) 10.5 ug/mL (10.0-20.0)
[2020-06-08 22:48] LABS: PHENOBARBITAL 17.8 ug/mL (15.0-40.0)
[2020-06-08 23:25] VITALS: BP 125/45; PULSE 104; RESP 20; O2SAT 96
[2020-06-08] MEDS: LORazepam 1 MG TAB PO (23:43)
[2020-06-09] VITALS: BP 151/78; PULSE 106; RESP 22; TEMP 36.3; O2SAT 95
--- NOTE | 2020-06-09 | DI.MRI_ITS ---
EXAM: MR BRAIN WO/W CLINICAL HISTORY: dizziness, R/O mets TECHNIQUE: Multiplanar multisequence MRI of the brain was performed. Both noninfused and contrast i nfused sequences were performed. IV Contrast injected was cc Dotarem. COMPARISON: CT CT HEAD WO from 08/07/2018 was reviewed FINDINGS: CEREBRAL PARENCHYMA: There is no evidence of intracranial hemorrhage, intra or extra-axial. Area of encephalomalacia in the left fronto temporal region both with in the left anterior and middle cranial fossae are again noted, consistent with prior infarct and evident on the prior CT scan of 2018. No abnormal enhancement in this area or elsewhere in brain. There are no ring enhancing les ions. Also again noted is an area of abnormal signal in the inferior lateral aspect of right cerebel lar hemisphere, also previously present on the CT scan of July 2018.. On diffusion imaging there is a tiny focus of increased signal evident in the posterior aspect of the left basal ganglia, measuring 2 millimeters, probably a cyst tiny hemorrhage at nonhemorrhagic lacunar infarct. There is no new ne w large territorial infarction. There are no ring enhancing lesions in the brain nor abnormal mening eal enhancement. 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 PITUITARY GLAND: No mass nor parasellar abnormality. No obvious abnormality in the cavernous sinuses. FLOW VOIDS: The expected flow void are noted. No evidence of obvious aneurysm nor obvious vascular ma lformation. PARANASAL SINUSES: The visualized paranasal sinuses appear unremarkable. ORBITS: No obvious abnormal findings. IMPRESSION: 1. Areas of encephalomalacia in the territory of the left middle cerebral artery consistent with prio r infarction, as evident on the prior CT scan of July 2018. Also small area of encephalomalacia in th e inferior left frontal lobe anterior cranial fossa, also most probably post ischemic and evident on the prior CT scan of 2018. There is also a small area of prior infarct in the inferior right cerebel lar hemisphere. 2. Abundant bilateral periventricular white matter signal abnormality consistent with chronic small v essel disease. There is a tiny 1-2 millimeter focus of signal abnormality on diffusion imaging seen in the posterior left basal ganglia which may represent a small nonhemorrhagic lacunar infarct. 3. There no metastatic appearing ring enhancing lesions in the brain. There is no abnormal meningea l enhancement, focal nor diffuse. DATA REPOSITORY:
[2020-06-09 00:02] LABS: COVID-19 PCR Negative (Negative)
[2020-06-09] MEDS: methylPREDNISolone SUCC 125 MG VIAL 80 MG IVP (01:05)
[2020-06-09 01:06] VITALS: PULSE 106; RESP 1; RESP 22; O2SAT 95
[2020-06-09] MEDS: Albuterol/Ipratropium 3 ML UPD VIAL UPD (01:06)
[2020-06-09] MEDS: Normal Saline Flush 10 ML SYR IVP ×2 (01:06→13:56)
[2020-06-09 01:36] VITALS: RESP 20
[2020-06-09 02:39] VITALS: RESP 20
[2020-06-09 04:20] VITALS: BP 119/72; PULSE 89; RESP 18; TEMP 36; O2SAT 94
[2020-06-09 07:14] VITALS: BP 106/66; PULSE 88; RESP 20; TEMP 35.3; O2SAT 95
[2020-06-09] MEDS: Aspirin E.C. 81 MG TABEC PO (07:53)
[2020-06-09] MEDS: Clopidogrel 75 MG TAB PO (07:54)
[2020-06-09] MEDS: Lisinopril 5 MG TAB PO (07:54)
[2020-06-09] MEDS: PHENobarbital 64.8 MG TAB PO (07:54)
[2020-06-09] MEDS: Metoprolol CR 50 MG TABCR 25 MG PO (07:54)
[2020-06-09] MEDS: methylPREDNISolone SUCC 40 MG VIAL IVP (07:55)
--- NOTE | 2020-06-09 10:03 | NUR.NOTE ---
Nursing Note: patient put call light on and when went into the room to help her she started yelling and swearing at the aid about questions she has about meds which she was told numerous that the answer is in the process
[2020-06-09] MEDS: Ondansetron 0.8 MG/ML Solution 4 MG PO (10:25)
[2020-06-09] MEDS: Meclizine 25 MG TAB PO ×2 (11:32→15:31)
[2020-06-09] MEDS: diazePAM 10 MG/2 ML SYR 5 MG IM (13:02)
[2020-06-09] MEDS: Amoxicillin 875/Clav. 125 TAB PO (13:03)
--- NOTE | 2020-06-09 13:44 | W.PM.DS.N ---
Date of service: 06/09/20 Time of Service: 13:48 DS: Diagnosis Discharge Diagnosis (1) Breast lesion: Start date: 06/09/20 Start time: 13:49 Status: Acute Asessment and Plan: CT scan revaling Large right breast mass presently necrotic, invading the chest wall. with additional breast nodules above. Multiple metastatic nodules in both lung naqvi, and bilateral pleural effusions Large nodule in the right thyroid lobe Sclerotic metastic disease evident in verteberal bodies Adrenal mass Spoke with patient about findings. Right breast deformed, oozing and necrotic, she wants her present for all conversation. She is agreeable to hospice. She wants to go home and have hospice meet her at her house. she is realistic that she is going to . She wants to go home today. She is having a brain MRI due to dizziness to r/o brain mets and being discharged home with hospice consult. (2) Metastasis: Start date: 06/09/20 Start time: 13:54 Status: Acute Asessment and Plan: as above Discharge Plan Disposition Patient Disposition: HOME Condition: Serious Discharge Details Reason For Visit: BREAST CANCER, COPD, ANXIETY Admit Date/Time: 06/08/20 22:47 Admit Provider: Ozzie Ramirez Attending Provider: Ozzie Ramirez Primary Care Provider: Niurka Hood [facility] Hospital Course: 70 y.o female with PMH presents to [facility] ED for evaluation for a wound. She was found to have a deformed right breast with oozing blood and necrosis. Labs in the ED were unremarkable, imaging revealing Compared to the prior CT scan of August 2019 there has been significant deterioration. Previously described large right breast mass appears presently necrotic and invading the underlying chest wall. Additional breast nodules as above. There are multiple metastatic nodules now evident in both lung naqvi and there are bilateral pleural effusions, right larger than left. Large nodule in the right thyroid lobe again noted. Sclerotic metastatic disease now evident in vertebral bodies, not previously present. No obvious rib lesions. Left adrenal mass again noted which appears unchanged in size. Cannot rule out a malignant metastatic lesion. The opposite-right adrenal gland remains unremarkable. Gallbladder surgically absent. I had a long discussion with patient regarding findings and reality of her situation. She was not interested in seeing an oncologist she stated it is my time when God says it is. She wants her present for all discussions with hospice and wants to be discharged home. She is agreeable to having hospice meet her at her house and discuss her goals with her and her . Hospice consult placed. She does have some wheezing and a cough. She is refusing steroids but is agreeable to an antibiotic. Will give augmentin for comfort. She likely has weeks to months. At this time she denies pain. She does state dizziness but attributes this to vertigo. MRI obtained to r/o brain mets. MRI She denies CP, SOB, N/V/D. She will be discharged home with something for pain and anxiety. Will defer to Hospice for medication changes. Home Meds and New Rx's Prescriptions: New prochlorperazine maleate 5 mg Tablet 5 mg PO Q6H PRN PRNQty: 20 RF: 0 lorazepam [Ativan] 1 mg tablet 1 mg PO BID PRNQty: 20 RF: 0 morphine 10 mg/5 mL solution 10 mg PO Q4H PRNQty: 100 RF: 0 amoxicillin-pot clavulanate [Augmentin] 875-125 mg tablet 1 tab PO BID Qty: 14 RF: 0 Continued lisinopril 5 mg tablet 5 mg PO DAILY RF: 0 nitroglycerin 0.4 mg tablet, sublingual 0.4 mg SL Q5M PRNRF: 0 clopidogrel [Plavix] 75 mg tablet 75 mg PO DAILY RF: 0 atorvastatin 80 mg tablet 80 mg PO DAILY RF: 0 aspirin [Aspir-81] 81 mg tablet,delayed release (DR/EC) 81 mg PO DAILY RF: 0 metoprolol succinate 50 mg tablet extended release 24 hr 25 mg PO DAILY RF: 0 phenytoin sodium extended [Dilantin Extended] 100 mg Capsule 400 mg PO DAILY RF: 0 phenobarbital 64.8 mg Tablet 64.8 mg PO BID RF: 0 Discharge Instructions Instructions: Breast Cancer in Women (DC), Lung Cancer (DC), Bone Metastasis (DC) Additional Instructions: You can eat and drink what ever you like You are in control of what ever you want in this time of your life You have been prescribed pain medication and anxiety medication, you do not have to take them but they are there if you want them. If you start to have breast bleeding apply the materials give to you by us to help with bleeding. Hospice will follow up with you at home tomorrow or the next day Stand Alone Forms: Nursing Discharge Form Referrals: Niurka Hood [Primary Care Provider] - 06/19/20 2:10 pm Activity:: Activity as Tolerated Equipment/Supplies:: What ever hospice decides Diet:: As Tolerated Discharge Orders Discharge Orders: Discharge Order (Routine); Ordered 06/09/20 Ordered By: Melba Torres DS: Summary Time Spent with Patient providing and/or coordinating discharge services: Greater than 30 minutes (approx 90 mins spent) Status at Discharge Functional status at discharge: bed bound Overall status at discharge: patient is not back to baseline Mental Status: mental status grossly normal Speech and Movement: speech and movement normal Mood: congruent mood Affect: normal affect Exam Narrative Exam Narrative: HEENT atraumatic; neck supple; lungs diffuse wheeze; heart RRR; breasts normal architecture right breast distorted, nipple not identifiable, large fungating and oozing lesion inferior aspect; abdomen soft and NT; extremities chronic lymphedema LEs; neuro Ox3, anxious, moves all 4s Psych Mental Status: mental status grossly normal Speech and Movement: speech and movement normal Mood: congruent mood Affect: normal affect DS: Data Vitals/I&O Vitals and I&O: Vital Signs Temperature 35.3 C L 06/09/20 07:14 Temperature Source Tympanic 06/09/20 07:14 Pulse 88 06/09/20 07:14 Pulse Rhythm Regular 06/09/20 07:50 Respiratory Rate 20 06/09/20 07:14 Respiratory Effort 06/09/20 07:50 Respiratory Depth Normal 06/09/20 07:50 Respiratory Pattern Normal 06/09/20 07:50 Blood Pressure 106/66 06/09/20 07:14 Blood Pressure Position Supine 06/08/20 19:30 Pulse Oximetry 95 06/09/20 07:14 Oxygen Delivery Method Nasal Cannula 06/09/20 07:14 Oxygen Flow Rate 2 06/09/20 07:14 Pain Level 5 06/09/20 07:14 Intake & Output 06/08/20 06/09/20 06/09/20 23:59 11:59 23:59 Weight 112 kg 108.862 kg Other: Urine Color Yellow Urine Appearance Clear Urine Odor Strong Comment Patient attempted to use bedpan because she reported dizziness and did not want to get up to the bedside commode. The bedpan was not sufficient and the linens needed to be changed. Voiding Methods Bedpan Data Completed and Pending Completed studies during hospitalization [Text1]: Exam(s) a CT:CT chest w EXAM: CT CHEST W CLINICAL HISTORY: Bleeding right breast mass. TECHNIQUE: Multi planar reconstructions were performed. CONTRAST MATERIAL: Omnipaque 350; 70 cc COMPARISON: CT CT THORAX ABD/PEL CTA from 09/03/2019 FINDINGS: CHEST: SOFT TISSUES: The previously described right breast mass is again noted, suspicious for malignancy, appearing necrotic and with contiguous involvement of the subjacent chest wall now evident but without rib destruction. There is overlying skin thickening which may be related to interval radiation treatment. Few slightly prominent lymph nodes in the right axilla are noted. In addition, there is a it is a nodular density measuring 9 x 7 millimeters in the medial aspect of the opposite-left breast as well as another noncalcified 8 millimeter nodule more centrally located in the left breast, these findings not previously evident. LUNGS: There is now a moderate size right pleural effusion, not previously present. Also smaller left pleural effusion. There are multiple small metastatic appearing nodules in both lung naqvi now evident. Average size is 6 millimeters. No focal findings in the trachea and mainstem bronchi. MEDIASTINUM: No obvious hilar nor mediastinal adenopathy. Large nodule in the right thyroid lobe is again noted.. There is no supraclavicular adenopathy. Visualized thyroid unremarkable. CARDIAC: Mild cardiomegaly. No pericardial effusion.Caliber of the thoracic aorta is within normal limits. VISUALIZED UPPER ABDOMEN:Right adrenal gland unremarkable. The previously described mass in the left adrenal gland is unchanged. Multiple cysts in the visualized kidneys are again noted. The gallbladder is surgically absent. There is a fusiform infrarenal abdominal aortic aneurysm noted which is only partially included in the field of view but measures approximately 3.5 cm. In addition, there is a subcutaneous noncalcified nodule over the anterior Tricia right abdominal wall measuring 15 mm are 1.5 x 1.1 cm. This appears unchanged from 09/03/2019 OSSEOUS: There is a cyst nonexpansile sclerotic bone lesion in the posterior left side of the T12 vertebral body, most probably metastatic. This was not evident on the prior study. Another sclerotic metastatic lesion is evident on the right side of L2 vertebral body and also lesions in partially included L3 vertebra. IMPRESSION: 1. Compared to the prior CT scan of August 2019 there has been significant deterioration. Previously described large right breast mass appears presently necrotic and invading the underlying chest wall. Additional breast nodules as above. 2. There are multiple metastatic nodules now evident in both lung naqvi and there are bilateral pleural effusions, right larger than left. 3. Large nodule in the right thyroid lobe again noted. 4. Sclerotic metastatic disease now evident in vertebral bodies, not previously present. No obvious rib lesions. 5. Left adrenal mass again noted which appears unchanged in size. Cannot rule out a malignant metastatic lesion. The opposite-right adrenal gland remains unremarkable. 6. Gallbladder surgically absent. Biliary tree is not dilated. There are bilateral benign kidney cysts. Exam(s) PROCEDURE INFORMATION: Exam: CT Chest With Contrast; Diagnostic Exam date and time: 06/08/2020 8:49 PM Age: 70 years old Clinical indication: Other: Bleeding right breast mass; Prior surgery; Surgery date: 6+ months; Surgery type: Gallbladder TECHNIQUE: Imaging protocol: Diagnostic computed tomography of the chest with contrast. 3D rendering (Not supervised by radiologist): MIP and/or 3D reconstructed images were created by the technologist. Radiation optimization: All CT scans at this facility use at least one of these dose optimization techniques: automated exposure control; mA and/or kV adjustment per patient size (includes targeted exams where dose is matched to clinical indication); or iterative reconstruction. Contrast material: OMNIPAQUE 350; Contrast volume: 70 ml; Contrast route: INTRAVENOUS (IV); COMPARISON: CT THORAX ABD/PEL CTA 09/03/2019 12:42 PM FINDINGS: Thyroid: Enlarged heterogeneous right thyroid lobe, similar to the comparison exam. Lungs: Several small, mostly peripheral pulmonary nodules in all lobes. Pleural spaces: Small right and trace left pleural effusions. Heart: Left atrial and left ventricular enlargement. No pericardial effusion. Aorta: Calcified atherosclerotic disease. Infrarenal abdominal aortic aneurysm, incompletely evaluated. Lymph nodes: Unremarkable. No enlarged lymph nodes. Liver: Ill-defined hypodensity in posterior right lobe of the liver measures 15 mm. Gallbladder and bile ducts: Prior cholecystectomy. No biliary duct dilatation. Pancreas: Pancreatic atrophy. Adrenal glands: Ill-defined left adrenal masses, not clearly benign adenomas. Kidneys and ureters: Several bilateral renal cysts. Bones/joints: Small sclerotic lesions in multiple thoracolumbar vertebral bodies. No acute fracture. Soft tissues: Cavitary right breast mass. Several subcutaneous body wall nodules on both the right and left. IMPRESSION: 1. Necrotic right breast mass, likely a primary malignancy, with evidence of metastatic disease to the subcutaneous body wall, bilateral lungs, pleural spaces, spine, and possibly the left adrenal gland in posterior right lobe of the liver. 2. Heterogeneous enlarged right thyroid, concerning for neoplasm. Recommend thyroid ultrasound. 3. Bilateral benign renal cysts. No further imaging required. CEREBRAL PARENCHYMA: There is no evidence of intracranial hemorrhage, intra or extra-axial. Area of encephalomalacia in the left fronto temporal region both with in the left anterior and middle cranial fossae are again noted, consistent with prior infarct and evident on the prior CT scan of July 2018. No abnormal enhancement in this area or elsewhere in brain. There are no ring enhancing lesions. Also again noted is an area of abnormal signal in the inferior lateral aspect of right cerebellar hemisphere, also previously present on the CT scan of July 2018.. On diffusion imaging there is a tiny focus of increased signal evident in the posterior aspect of the left basal ganglia, measuring 2 millimeters, probably a cyst tiny hemorrhage at nonhemorrhagic lacunar infarct. There is no new new large territorial infarction. There are no ring enhancing lesions in the brain nor abnormal meningeal enhancement. There is abundant bilateral periventricular signal abnormality consistent with chronic small vessel ischemic changes, nonenhancing and nonhemorrhagic. PITUITARY GLAND: No mass nor parasellar abnormality. No obvious abnormality in the cavernous sinuses. FLOW VOIDS: The expected flow void are noted. No evidence of obvious aneurysm nor obvious vascular malformation. PARANASAL SINUSES: The visualized paranasal sinuses appear unremarkable. ORBITS: No obvious abnormal findings. IMPRESSION: 1. Areas of encephalomalacia in the territory of the left middle cerebral artery consistent with prior infarction, as evident on the prior CT scan of July 2018. Also small area of encephalomalacia in the inferior left frontal lobe anterior cranial fossa, also most probably post ischemic and evident on the prior CT scan of 2018. There is also a small area of prior infarct in the inferior right cerebellar hemisphere. 2. Abundant bilateral periventricular white matter signal abnormality consistent with chronic small vessel disease. There is a tiny 1-2 millimeter focus of signal abnormality on diffusion imaging seen in the posterior left basal ganglia which may represent a small nonhemorrhagic lacunar infarct. 3. There no metastatic appearing ring enhancing lesions in the brain. There is no abnormal meningeal enhancement, focal nor diffuse. Labs on day of discharge: Labs from last 24 hours 06/08/20 06/08/20 06/08/20 22:15 20:00 20:00 WBC RBC Hgb Hct MCV MCH MCHC RDW Plt Count MPV Immature Gran % Neutrophils % Lymphocytes % Monocytes % Eosinophils % Basophils % Nucleated RBC % Absolute Neutrophils Absolute Lymphocytes Absolute Monocytes Absolute Eosinophils Absolute Basophils PT INR APTT Sodium Potassium Chloride Carbon Dioxide Anion Gap BUN Creatinine Estimated GFR/1.73 m2 Glucose Calcium Total Bilirubin AST ALT Alkaline Phosphatase Total Protein Albumin Phenytoin 10.5 Phenobarbital 17.8 COVID-19 Source Nasopharyx SARS-CoV-2 (PCR) Negative 06/08/20 06/08/20 06/08/20 20:00 20:00 20:00 WBC 8.16 RBC 4.26 Hgb 13.0 Hct 39.2 MCV 92.0 MCH 30.5 MCHC 33.2 RDW 16.4 H Plt Count 229 MPV 10.5 Immature Gran % 0.4 Neutrophils % 79.1 Lymphocytes % 10.9 Monocytes % 6.3 Eosinophils % 2.9 Basophils % 0.4 Nucleated RBC % 0 Absolute Neutrophils 6.46 Absolute Lymphocytes 0.89 L Absolute Monocytes 0.51 Absolute Eosinophils 0.24 Absolute Basophils 0.03 PT 10.0 INR 1.0 APTT 23.6 Sodium 139 Potassium 4.3 Chloride 103 Carbon Dioxide 25.3 Anion Gap 10.7 BUN 21 H Creatinine 1.0 Estimated GFR/1.73 m2 54.66 Glucose 131 H Calcium 8.3 L Total Bilirubin 0.4 AST 18 ALT 34 Alkaline Phosphatase 199 H Total Protein 7.4 Albumin 3.4 Phenytoin Phenobarbital COVID-19 Source SARS-CoV-2 (PCR) [facility] Medical History (Updated 06/09/20 @ 14:03 by Melba Torres NP) Atherosclerotic cardiovascular disease COPD (chronic obstructive pulmonary disease) Hyperlipidemia Hypertension Obesity Tobacco abuse Social History Smoking/Tobacco Use Status: Current every day Tobacco Type: cigarettes Smoking risk assessment performed?: Yes Alcohol Intake: never Drug use: Never Substance use type: does not use Do you feel safe at home: Yes Do you feel safe in your relationship?: Yes
[2020-06-09] MEDS: Gadoterate meglumine 20 ML VIAL IVP (13:57)
[2020-06-09] MEDS: Ketorolac 10 MG TAB PO (15:43)
--- NOTE | 2020-06-09 17:25 | PDOC.CMPRO ---
- If Service Date Differs Date of service: 06/09/20 Time of Service: 17:25 Care Management Progress Note S/O: Lucero was lying in bed when CM met with her. She had her lunch in front of her, but was not eating much. She reported that she couldn't sit up in bed because she was so dizzy, but she had reported this to her RN, who had given her medication for the dizziness. Lucero explained that she spoke to the provider, who had told her that her breast cancer is advanced, and that she likely has weeks to months to live. She decided that she does not want further work up, and would like to return home with her and Hospice support. CM called Vicki, internship coordinator, and arranged for her to have a home consultation tomorrow, as she will return home today. CM coordinated ambulance transport home. CM will continue to follow. A: Lucero is a 70 year old female admitted to [facility] on 06/08/20 with Breast Cancer, COPD, anxiety. P: Lucero will return home today with a Hospice consult, which CM coordinated for tomorrow at her home. CM coordinated ambulance transport home, where her is waiting for her arrival. Lucero is happy with this plan, and is looking forward to being home with her family and cat.
== END 2020-06-09 16:27 | disposition home or self-care (01) ==
LOC: ER 23:01 → MS 23:49
PROVIDERS: Admitting Provider General Practice; Emergency Provider Physician Assistant; PCP Family Medicine; Visit Provider General Practice
DX: C50.111 Malignant neoplasm of central portion of right female breast (principal); C78.02 Secondary malignant neoplasm of left lung; C78.01 Secondary malignant neoplasm of right lung; C79.51 Secondary malignant neoplasm of bone; F17.210 Nicotine dependence, cigarettes, uncomplicated; E78.5 Hyperlipidemia, unspecified; I10 Essential (primary) hypertension; I25.2 Old myocardial infarction; G40.909 Epilepsy, unspecified, not intractable, without status epilepticus; F41.9 Anxiety disorder, unspecified; R42 Dizziness and giddiness; E27.9 Disorder of adrenal gland, unspecified
CPT/HCPCS: 36415; 70553; 80053; 87635; 99217; 99222; 99285; 71260; 80184; 80185; 85025; 85610; 85730; 99219; G0378; J2270; J2930; J3360; J7620; J8597

== ENCOUNTER 2020-07-25 19:42 | Inpatient (IN) | payer OTHER, SELFPAY ==
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
[2020-07-25 20:30] VITALS: BP 175/96; PULSE 100; RESP 18; TEMP 36.7; O2SAT 97
[2020-07-25 20:34] VITALS: BP 132/73; PULSE 100; RESP 20; TEMP 36.7; O2SAT 97
[2020-07-25] MEDS: Gelatin SPONGE 12-7 MM PKT 1 EACH TP (22:20)
--- NOTE | 2020-07-25 22:25 | PGE_ITS ---
Date of Service Date of service: 07/25/20 Time of Service: 22:26 Assessment and Plan Assessment and plan (1) Anxiety about health: Status: Chronic Assessment and plan: Will not allow us to give her any medications. Beginning to understand how sick she is. Denial not working as well as it has for her. (2) Bleeding: Status: Acute Assessment and plan: Reason for admission. Restarted during her bedbath. Movement of right arm puts cancer vessels at risk for bleeding. Applied silver nitrate sticks. Then covered by gel foam. Not bleeding at this time. I do have SURGIVAL consult in place IN CASE she starts bleeding again tomorrow am (3) Hospice care patient: Status: Chronic Assessment and plan: Here on symptom management. (4) Stage IV breast cancer in female: Status: Chronic Assessment and plan: Advanced. No treatment given. With mets to lung, adrenal, LN. Does not want any treatment. Subjective Subjective Patient reports: denies voiding w/o difficulty Interval history since last seen: I was called in to treat her bleeding wound again. This time, I applied 4 silver nitrate sticks and applied more pressure. Nursing electronics production supervisor brought in gelfoam and applid over area where silver nitrate had richard applied. No obvious oozing at this time. Lucero has been refusing any wraps to apply pressure. She talks repeatedly about burning pain but also declines any medications. Her Lazaro has decided to spend the night with her. She is less anxious than she was when she was admitted Note that any movement of her right arm puts her at risk for rebleeding. Exam Narrative Exam Narrative: Elderly obese pale woman lying in bed, , with severe deformity of right breast due to advanced breast cancer. Eyes: anicteric, poor vision HEENT dentures in place, hearing grossly normal, no rhinnorhea Lungs breathing at normal rate, able to speak in full sentences CV regular rate abd obese with gallbladder scar tender in RUQ ext +3 edema to mid calf neuro: oriented x 3 psych: still struggling with her advancing cancer, uses denial to cope, anxiety not as severe as it was skin: was receiving bed bath at time of bleeding restart, cannot move her arm Objective Last Vital Signs Temp 98.1 F 07/25/20 20:34 Pulse 100 H 07/25/20 20:34 Resp 20 07/25/20 20:34 BP 132/73 07/25/20 20:34 Pulse Ox 97 07/25/20 20:34
[2020-07-26 00:03] LABS: Source Nasal/Nares
[2020-07-26 00:41] LABS: COVID-19 PCR Negative (Negative)
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
[2020-07-26] MEDS: Metoprolol CR 25 MG TABCR PO (09:22)
[2020-07-26] MEDS: PHENobarbital 64.8 MG TAB PO ×2 (09:22→21:53)
[2020-07-26] MEDS: Docusate Sodium 100 MG CAP PO (09:22)
--- NOTE | 2020-07-26 09:52 | PGE_ITS ---
Date of Service Date of service: 07/26/20 Time of Service: 09:04 Assessment and Plan Assessment and plan (1) Anxiety about health: Status: Chronic Assessment and plan: She is willing to stay another night at [facility]. Has vowed she would not in past, but I think she feels safer as inpatient than at home. I would like to see proof of bleeding being controlled for at least another 24 hrs. I would encourage her to be more mobile as the day progresses, to see if she can be at her usual level of activity without causing bleeding to recur. (2) Tobacco abuse: Status: Chronic Assessment and plan: Smokes more than a pack per day but doesn't want patch. It is ordered prn. (3) Bleeding: Status: Acute Assessment and plan: Controlled for now. When she goes home, suggest that hospice team have both silver nitrate sticks and gel foam in her house to treat possible recurrence. Given the state of her cancer, and knowledge that it will continue to erupt, chance of rebleeding is very high. (4) Hospice care patient: Status: Chronic Assessment and plan: Remains on SYMPTOM MANAGEMENT. Will spend another night at [facility]. Not sure if she will be ready to go home tomorrow,. needs more education before this would be safe plan. (5) Unintentional weight loss: Status: Acute Assessment and plan: She thinks she's lost about 30 lbs in the last 2 m [facility]. (6) Cancer related pain: Status: Acute Assessment and plan: Today was the first time she acknowledged having pain associated with her right breast cancer. She agreed to give 5 mg doses of morphine a try while she is hospitalized. Subjective Subjective Patient reports: still having pain and shortness of breath Interval history since last seen: After I applied the silver nitrite sticks and gelfoam to her bleeding cancerous wound last night, Lucero had no further bleeding. She was able to sleep for a few hours. She does not want her nicotine patch applied. She admits to having pain in her right axilla and right rib cage. She is willing to take 5 mg doses of morphine q 4 hrs. I advised she can refuse a dose if she doesn't need it. Her feels overwhelmed, is tearful. Both are afraid of what is to come. Lucero is willing to stay another night so we can observe her wound, ensure that it is clotting off. I asked her to bring in all her medications from home and told him we would set up Lucero's medications in a med box for him to give her. She is off her aspirin and plavix indefinitely. She looks pale and exhausted. I can feel the reality of her diagnosis and impending is sinking in. Exam Narrative Exam Narrative: Elderly obese pale woman lying in bed, looks exhausted, winces in pain with movement of right arm. Cooperative. Less anxious. Eyes: anicteric, poor vision HEENT dentures in place, hearing grossly normal, no rhinnorhea, no LAD Lungs breathing at normal rate, CTAB, able to speak in full sentences CV regular rate no murmur abd obese with gallbladder scar tender in RUQ ext +1 edema to mid calf--improved neuro: oriented x 3 psych: still struggling with her advancing cancer, uses denial to cope, anxiety not as severe as it was skin: open sore under right breast not bleeding--I did not remove bandages; toes with onychmycosis and built up of dry skin; multiple rashes/excoriations chest: with severe deformity of right breast due to advanced breast cancer. Objective Last Vital Signs Temp 98.1 F 07/25/20 20:34 Pulse 100 H 07/25/20 20:34 Resp 20 07/25/20 20:34 BP 132/73 07/25/20 20:34 Pulse Ox 97 07/25/20 20:34 Laboratory Results - last 24 hr 07/26/20 00:00 COVID-19 Source Nasal/nares SARS-CoV-2 (PCR) Negative
[2020-07-26] MEDS: MORPHine Oral Concentrate 20 MG/ML PO ×2 (09:58→22:49)
--- NOTE | 2020-07-26 10:08 | PHA.REVIEW ---
Pharmacy Admission Review - Admission Clinical Review (Last Updated 07/25/20 @ 20:21 by Lyric Seaman MD) Thyroid nodule greater than or equal to 1.5 cm in diameter incidentally noted on imaging study (Acute) Bleeding (Acute) Metastasis (Acute) Breast lesion (Acute) acetaminophen [From Tylenol] Adverse Reaction (Intermediate, Verified 06/08/20 19:39) Dizziness/Lightheade tetracycline Adverse Reaction (Intermediate, Verified 06/08/20 19:39) Dizziness/Lightheade triamcinolone Adverse Reaction (Mild, Unverified 06/08/20 19:39) Other (See Comment) Height 5 ft 3 in Weight 99.88 kg - Comments Comments/Follow Ups: pt here on hospice care for uncontrolled bleeding due to cancer - Renal Dosing Medications needing adjustments: Reviewed (crcl ~43ml/min) - Anticoagulation DVT Prohphylaxis: N/A Therapeutic Anticoagulation: N/A - Opiate Usage Evaluate Pain Scale/Pains Meds: Reviewed Scheduled Bowel Reg ordered if on Opiates?: Yes - Relevant Labs Electrolytes, C-Reactive P, ESR: N/A - DM Control Insulin Dosing: N/A - Home Meds Home Med List reviewed: Reviewed (asa and clopidogrel stopped before admission) - Current meds Current Medication Order Review: Reviewed (phenobarb and phenytoin from home cont'd) - Comments Comments/Follow Ups: using silver nitrate sticks and wraps to stop bleeding
[2020-07-26 10:29] VITALS: BP 132/71
[2020-07-26] MEDS: Calcium Carbonate *TUMS* 500 MG CHEW PO (12:41)
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
[2020-07-27] MEDS: Calcium Carbonate *TUMS* 500 MG CHEW PO (06:31)
[2020-07-27] MEDS: Ondansetron O.D.T. 4 MG TABEF PO ×2 (06:57→12:07)
[2020-07-27] MEDS: PHENobarbital 64.8 MG TAB PO ×2 (08:48→19:38)
[2020-07-27] MEDS: Metoprolol CR 25 MG TABCR PO (08:48)
--- NOTE | 2020-07-27 12:29 | PDOC.CMPRO ---
- If Service Date Differs Date of service: 07/27/20 Time of Service: 12:29 Care Management Progress Note S/O: Lucero is sitting up in bed when CM enters her room. Her , Lazaro, is present in the room and has not left his 's side since her admission to the hospital. Lucero was hoping to be able to return home today and is disappointed that she has to remain at [facility] for one more day. She reports the provider has told her that she cannot go home until a hospital bed and a commode have been delivered to the house, and this is expected to happen tomorrow. Lucero talks about her neighbors and says they have been very supportive of both she and Lazaro. She also shares how the two of them will be 52 years in August. CM will continue to follow. A: Lucero is a 70 year old woman admitted to [facility] on 07/25/2020 for acute bleeding from right breast cancer and inability to manage the bleeding at home. P: Lucero is a hospice patient. She will be returning home once a hospital bed and commode are delivered to her home. She will follow up with her hospice team and discharge plan of care as directed. Her , Lazaro, will drive her home via private vehicle vs ambulance if Lucero is too weak to go by car. CM will continue to support Lucero, family, and discharge planning needs.
[2020-07-27] MEDS: Docusate Sodium 100 MG CAP PO (19:38)
--- NOTE | 2020-07-27 21:16 | PGE_ITS ---
Date of Service Date of service: 07/27/20 Time of Service: 07:16 Assessment and Plan Assessment and plan (1) Cancer related pain: Status: Acute Assessment and plan: Changed her dose from 5 mg down to 2.5 mg every 4 hrs. She has no grimace, frown, or wincing. She is comfortable. (2) Unintentional weight loss: Status: Acute Assessment and plan: Due to her cancer. (3) Anxiety about health: Status: Chronic Assessment and plan: She and her Lazaro have been in denial about the severity of her illness until this admission. It has helped both of them for her to be here. They have contacted their 2 children, and encouraged them to visit sooner rather than later. We will set up daily RN visits for hospice for the next few days. I am worried that her Lazaro may lack the cognitive skills to be able to care for her as needed. She has looked more relaxed and comfortable each time I have seen her on this admission. I hope that her more accepting ways re: her cancer will continue once she is home. (4) Hypoxia: Status: Acute Assessment and plan: Extremely low at 53% while sleeping. Likely multifactorial from suspected FABY and COPD; she does have known lung mets. Did not appear to be PE in nature. No extreme dyspnea or anxiety. (5) Discharge planning issues: Status: Acute Assessment and plan: All the DME she needs is at home now. She will need to have silver nitrate q tips (#10) at her house in case of further bleeding along with gel foam (one small package.) [facility] should be able to bill them to HOSPICE. Lazaro planning to transport her home. Will ask for SN visit daily x next few days. Advised I will come see her on 08/01. Dr Reynaga will discharge her tomorrow. Lucero knows she is to stop 3 meds at home: no lasix, no plavix and no aspirin. Subjective Subjective Patient reports: pain is less, voiding w/o difficulty, nausea, vomiting and shortness of breath; denies tolerating a regular diet Interval history since last seen: I saw Kris on 2 separate visits today. In the am, she was nauseated and had just vomited. She felt very sleepy. We reduced her dose of morphine to 2.5 mg q 4 hrs scheduled, with her being able to refuse it. Her pain is controlled on very low doses of morphine. Her oxygenation was VERY low at 53% on RA when the BREASTFEEDING PEER COUNSELOR took it. On 2L of oxygen, it came up to 85, and if she breathed through her nose, it hit 91%. I encouraged her to give it a try, to see if oxygen makes her feel better. Lucero tried oxygen by nasal canula all day. She has known lung metastasis and likely COPD. She is a heavy smoker and has been since she was a teen. She slept for most of the day, per her and nurse. Her appetite is poor. Her anxiety is much better. She is catching up on much needed sleep. With her legs up on her bed, her pedal edema is trace to 1+. I stopped her diuretic on admission, and will not prescribe again. She had a small amount of bleeding from her breast, but it quickly coagulated. She is off both her aspirin and her plavix forever. She vacillated throughout the day about her desire to go home. We did have [facility] deliver her hospital bed, commode and oxygen. SHe had resisted any DME until [facility] admission. She is interested in going home tomorrow am, after [address] am[address] She knows that Dr Reynaga will be seeing her at 7 am. Her feels overwhelmed by Lucero's increasing care needs. We will have nurses see Lucero tomorrow and review new instructions with him. Also set up Lucero's meds in a med box. The nurses and I stressed repeatedly that NO ONE CAN SMOKE IN THE HOME once Luceor goes home. Exam Narrative Exam Narrative: Elderly obese pale woman lying in bed, looks exhausted, winces in pain with movement of right arm. Cooperative. Less anxious. Eyes: anicteric, poor vision HEENT dentures in place, hearing grossly normal, no rhinnorhea, no LAD Lungs breathing at normal rate, CTAB, able to speak in full sentences CV regular rate no murmur abd obese with gallbladder scar tender in RUQ ext +1 edema to mid calf--improved neuro: oriented x 3 psych: still struggling with her advancing cancer, uses denial to cope, anxiety not as severe as it was skin: open sore under right breast not bleeding--I did not remove bandages; toes with onychmycosis and built up of dry skin; multiple rashes/excoriations chest: with severe deformity of right breast due to advanced breast cancer. Objective Last Vital Signs Temp 98.1 F 07/25/20 20:34 Pulse 100 H 07/25/20 20:34 Resp 20 07/25/20 20:34 BP 132/71 07/26/20 10:29 Pulse Ox 97 07/25/20 20:34
[2020-07-27 22:50] VITALS: O2SAT 94
[2020-07-28 07:41] VITALS: BP 122/69; PULSE 73; RESP 16; TEMP 37.3; O2SAT 96
[2020-07-28] MEDS: PHENobarbital 64.8 MG TAB PO (07:48)
[2020-07-28] MEDS: Metoprolol CR 25 MG TABCR PO (07:49)
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
[2020-07-28 08:19] VITALS: O2SAT 97
[2020-07-28 09:30] VITALS: O2SAT 96
--- NOTE | 2020-07-28 09:36 | RESPIRATORY ---
Rt spoke with patient concerning O2 at discharge to get home with. Patient refused and stated her ride home is the only chance for her to have a cigarette and she doesn't want to give that chance up if she wants one. Patient stated she has home O2 already set-up with [facility] but needs to be shown how to use it. RT informed her that [facility] will instructor on what to do. RT also emphasized with patient to not smoke while on oxygen, patient states she knows and will not do so. Rt mentioned to patient that she could titrate her to RA to see how she does if she wanted as her SpO2 was 96% on 1L. Patient stated no, she will stay on it till she leaves then will deal with it once home. Rt was in agreeance and left patient on 1L along with informed patients nurse of discussion.
--- NOTE | 2020-07-28 09:57 | PDOC.CMPRO ---
Care Management Progress Note Lucero will return home on Hospice. Hospital bed and commode have been delivered to her home. She will follow up with her hospice team and discharge plan of care as directed. Her , Lazaro, will drive her home via private vehicle vs ambulance if Lucero is too weak to go by car.
--- NOTE | 2020-07-28 10:22 | W.NUTRFU ---
Date of service: 07/28/20 Time of Service: 10:22 Nutritional Follow up NOTE: 70 year old male followed by hospice program and admitted with cancer related pain with unintentional weight loss (20 lbs in 3 months/9% weight loss). BMI indicates class 2 obesity. Following regular meal plan and currently meeting 100% nutrient and fluid needs. Currently, not at nutritional risk. Will continue to follow. Time Spent in Nutritional Counseling and Treatment: 0
== END 2020-07-28 11:45 | disposition home health service (06) | DRG 598 ==
PROVIDERS: Admitting Provider Family Medicine; PCP Family Medicine; Visit Provider Family Medicine
DX: C50.911 Malignant neoplasm of unspecified site of right female breast (principal); C78.00 Secondary malignant neoplasm of unspecified lung; C77.8 Secondary and unspecified malignant neoplasm of lymph nodes of multiple regions; C79.70 Secondary malignant neoplasm of unspecified adrenal gland; E04.1 Nontoxic single thyroid nodule; Z87.820 Personal history of traumatic brain injury; G40.909 Epilepsy, unspecified, not intractable, without status epilepticus; E66.9 Obesity, unspecified; F17.210 Nicotine dependence, cigarettes, uncomplicated; F41.8 Other specified anxiety disorders; Z20.822 Contact with and (suspected) exposure to COVID-19; Z51.5 Encounter for palliative care; I25.2 Old myocardial infarction; I25.10 Atherosclerotic heart disease of native coronary artery without angina pectoris; J44.9 Chronic obstructive pulmonary disease, unspecified; I10 Essential (primary) hypertension; E78.5 Hyperlipidemia, unspecified; Z80.3 Family history of malignant neoplasm of breast; Z62.811 Personal history of psychological abuse in childhood; G89.3 Neoplasm related pain (acute) (chronic); N64.4 Mastodynia; S21.001A Unspecified open wound of right breast, initial encounter; N64.59 Other signs and symptoms in breast; R63.4 Abnormal weight loss
CPT/HCPCS: 87635

== ENCOUNTER 2020-10-14 11:58 | Inpatient (IN) | payer OTHER, SELFPAY ==
[2020-10-14 14:40] VITALS: BP 151/80; PULSE 94; RESP 20; TEMP 36.5; O2SAT 91; O2SAT 95
[2020-10-14 15:30] LABS: Source Nasal/Nares
--- NOTE | 2020-10-14 16:08 | RESPIRATORY ---
Assessed pt at bedside for respiratory needs. She appeared reasonably comfortable without dyspnea or accessory muscle use on 3.5L NC . She did complain of inability to recline back with feet elevated due to shortness of breath. Pt stated legs are more swollen than they have ever been in the past, and that they are extremely painful. Pt has strong loose cough, but is unable to bring up secretions. Pt claims she is unable to tolerate warm humidified air and prefers cool dry air. RT plans to discuss with attending if pain medications and lasix would benefit this patient.
[2020-10-14 16:23] LABS: COVID-19 PCR Negative (Negative)
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
[2020-10-14] MEDS: Nystatin POWDER 15 GM JAR TP (20:11)
[2020-10-14] MEDS: Benzonatate 100 MG CAP PO (20:43)
--- NOTE | 2020-10-14 20:53 | NUR.NOTE ---
Patient is having difficulty breathing and wheezes anterior and posterior lung field. Patient refused updraft at this time even after education. Groin and pannis macerated offered to clean up patient she refused at this time. Nystatin powder applied to the area this was allowed by patient at this time. Patient state it is quite difficult to sleep because of the coughing offered her the recliner same was refused but patient. Patient to be reassessed throughout the remainder of shift
--- NOTE | 2020-10-15 00:24 | NUR.NOTE ---
Patient was noted earlier during the shift (approximately 0) sitting at the side of the bed with her head on a pillow on the side table. She was informed this is not safe because the side table has wheels that are unable to be locked and potentially can slide and she will fall. At this point i asked the charge nurse Bisi to aide me, we then placed the patient's bed in a chair position because she is having a difficult time breathing. she was then made as comfortable as possible at that time. At 0.15 patient was noted at the foot of the bed, seemingly confused at this time, stating she does not know how she reached at the foot of the bed. She is very Short of breath, with audible wheezes. Patient was asked if she would like some medications to help with breathing she accepted the morphine solution but declines any other medications. Pt started complaining of having pain all over, she was asked if she would like additional medications to relieve discomfort, this she adamantly refused. She shortly after requested my assistance in calling her , which i did. Patient is currently in bed in the high fowlers position while oxygen therapy progresses.
[2020-10-15] MEDS: PHENobarbital 64.8 MG TAB PO (08:10)
[2020-10-15] MEDS: Metoprolol CR 25 MG TABCR PO (08:12)
--- NOTE | 2020-10-15 08:56 | CMPROGNOTE_ITS ---
- If Service Date Differs Date of service: 10/15/20 Time of Service: 08:56 Care Management Progress Note Lucero lives in [facility] with her , Lazaro. They have two adult children, a son who lives in [place] and a daughter in [place]. 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 Lucero names her and several neighbors as her supports. Lucero will return home on Hospice. She has oxygen, hospital bed and commode at her home, her is her primary caregiver. She will follow up with her hospice team and discharge plan of care as directed. Her , Lazaro, will drive her home via private vehicle vs ambulance if Lucero is too weak to go by car.
[2020-10-15] MEDS: Scopolamine 1 MG/3 DAYS PATCH TD (10:04)
[2020-10-15] MEDS: Promethazine 25 MG TAB PO (10:04)
--- NOTE | 2020-10-15 10:05 | W.PM.PROGNOT ---
Date of Service Date of service: 10/15/20 Time of Service: 10:07 Assessment and Plan Assessment and plan (1) Respiratory distress: Status: Acute Assessment and plan: She continues to have increased work of breathing and wheezing throughout. Continue oxygen, PRN nebs, low dose morphine. Add prednisone burst, 40 mg PO x5 days. (2) Hypoxia: Status: Acute Assessment and plan: She was hypoxic in the 70s at home. She is currently on oxygen at 4lpm. Nebulizer treatments as needed. Steroid burst as above. (3) Cancer related pain: Status: Acute Assessment and plan: She is requiring MS oral concentrate frequently for SOB and pain. She has back pain. Consider MS CADD pump for SOB and pain if not improved with steroids. (4) Unintentional weight loss: Status: Acute Assessment and plan: She has not eaten anything today. She appears to have lost weight. (5) Anxiety about health: Status: Chronic (6) Tobacco abuse: Status: Chronic Assessment and plan: Both she and smoke at home. She declines tobacco cessation aids at this time. (7) Stage IV breast cancer in female: Status: Chronic Assessment and plan: Could be cause of her increased dyspnea. She was seen to have lung mets more than a year ago. She is tight and wheezy throughout her lung naqvi. Continue treatment of dyspnea as above. (8) Hospice care patient: Status: Chronic Assessment and plan: She remains on Hospice SYMPTOM MANAGEMENT. Please contact hospice with questions or concerns. Subjective Subjective Interval history since last seen: Pat reports that her breathing feels more comfortable. She remains wheezy. She has an intermittent cough. She is requiring frequent morphine doses for respiratory distress. She is on oxygen at 4lpm for comfort. She has not eaten anything today. Her reports that she has been sleeping a lot. He had difficulty with transfers at home, she is weaker. She has not been out of bed today. She refused a schofield catheter. We talked about possibly starting a MS CADD pump due to her oral morphine requirement, her understands that it might be helpful. Also discussed getting a hospital bed at home. She had one and asked for it to be removed, but she will likely need one at this point. Exam Narrative Exam Narrative: General: overweight, female, laying in bed with eyes closed. Opens eyes and answers questions with brief responses. HEENT: Normocephalic, atraumatic, pupils equal and round, mucous membranes dry. Neck: supple. Breast: right breast deformed with wound under, no bleeding, +odor. Cardiovascular: heart sounds regular, nontachycardic. Respiratory: respirations appear labored at times, audible wheezes noted, lung sounds tight with wheezing throughout all lung naqvi, + cough noted. GI: soft, nondistended, nontender on palpation, +BS. Extremities: +edema to BLEs. Objective Last Vital Signs Temp 36.5 C 10/14/20 14:40 Pulse 94 H 10/14/20 14:40 Resp 20 10/14/20 14:40 BP 151/80 H 10/14/20 14:40 Pulse Ox 95 10/14/20 14:40 Laboratory Results - last 24 hr 10/14/20 14:30 COVID-19 Source Nasal/Nares SARS-CoV-2 (PCR) Negative
[2020-10-15] MEDS: LORazepam 1 MG TAB PO (10:51)
[2020-10-15] MEDS: Nystatin POWDER 15 GM JAR TP (10:54)
--- NOTE | 2020-10-15 14:14 | PHA.REVIEW ---
Pharmacy Admission Review - Admission Clinical Review (Last Updated 10/14/20 @ 20:39 by Lyric Seaman MD) Respiratory distress (Acute) Hypoxia (Acute) Cancer related pain (Acute) Unintentional weight loss (Acute) acetaminophen [From Tylenol] Adverse Reaction (Intermediate, Verified 06/08/20 19:39) Dizziness/Lightheade tetracycline Adverse Reaction (Intermediate, Verified 06/08/20 19:39) Dizziness/Lightheade triamcinolone Adverse Reaction (Mild, Unverified 06/08/20 19:39) Other (See Comment) Resuscitation Status DNR/DNI - Renal Dosing Medications needing adjustments: N/A (no labs) - Anticoagulation DVT Prophylaxis: N/A Therapeutic Anticoagulation: N/A - Opiate Usage Evaluate Pain Scale/Pains Meds: Reviewed Scheduled Bowel Reg ordered if on Opiates?: No (has PRN meds ordered) - Relevant Labs Electrolytes, C-Reactive P, ESR: N/A (no labs) - DM Control Insulin Dosing: N/A - Heart Failure/ID EF%, LUISITO's, B-Blockers, Diuretics: N/A - BP Control If elevated: N/A - Qtc Review If Elevated: N/A - IV to PO Switch IV Medications: Reviewed - Home Meds Home Med List reviewed: Reviewed (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 Continue to watch VS and for med changes.
--- NOTE | 2020-10-15 22:25 | NUR.NOTE ---
During assessment of patient earlier, noted patient breathing becoming more and more shallow until patient stopped breathing. Patient appeared comfortable. Patient stopped breathing at 20.07.
--- NOTE | 2020-10-27 17:17 | W.PM.DDS ---
Date of service: 10/15/20 Time of Service: 21:14 Discharge Sum: Diag Contributing Factors (1) Respiratory distress: (2) Hypoxia: (3) Cancer related pain: (4) Unintentional weight loss: (5) Anxiety about health: (6) Tobacco abuse: (7) Stage IV breast cancer in female: (8) Hospice care patient:
== END 2020-10-15 22:12 | disposition expired | DRG 182 ==
PROVIDERS: Admitting Provider Family Medicine; PCP Family Medicine; Visit Provider Family Medicine
DX: C78.00 Secondary malignant neoplasm of unspecified lung (principal); R09.02 Hypoxemia; R06.03 Acute respiratory distress; G89.3 Neoplasm related pain (acute) (chronic); R63.4 Abnormal weight loss; F41.8 Other specified anxiety disorders; F17.210 Nicotine dependence, cigarettes, uncomplicated; C50.911 Malignant neoplasm of unspecified site of right female breast; I25.10 Atherosclerotic heart disease of native coronary artery without angina pectoris; J44.9 Chronic obstructive pulmonary disease, unspecified; Z51.5 Encounter for palliative care; E78.5 Hyperlipidemia, unspecified; I10 Essential (primary) hypertension; E66.9 Obesity, unspecified; Z87.820 Personal history of traumatic brain injury; G40.909 Epilepsy, unspecified, not intractable, without status epilepticus; I71.2 Thoracic aortic aneurysm, without rupture; Z20.822 Contact with and (suspected) exposure to COVID-19; Z80.3 Family history of malignant neoplasm of breast
CPT/HCPCS: 87635; 99238